=== PATIENT | female | born 1970 | race Caucasian/White ===

== ENCOUNTER 2019-06-05 14:46 | Outpatient (CLI) | payer OTHER, SELFPAY ==
--- NOTE | 2019-06-05 14:58 | CT_ITS ---
WS: [id number] CT PELVIS AND RIGHT HIP. HISTORY: SACROILIAC PAIN Technique: All CT scans at [facility] use at least one of these dose optimization techniq ues: automated exposure control; mA and/or kV adjustment per patient size (includes targeted exams wh ere dose is matched to clinical indication); or iterative reconstruction. DLP: 929.65 mGy-cm. COMPARISON: None available. Very mild sclerosis without significant narrowing of the SI joints. No erosions are identified. No br idging osteophytes or asymmetry. No pelvic fracture. Very mild narrowing of the RIGHT hip joint with no loose body or fracture. No dislocation. No signifi cant muscle atrophy. CT/CT hip RT wo con* [id number] IMPRESSION: 1. No significant RIGHT SI joint abnormality. 2. Mild RIGHT hip arthritis.
--- NOTE | 2019-06-05 14:58 | CT_ITS ---
WS: [id number] CT LEFT HIP, NONCONTRAST HISTORY: SACROILIAC PAIN Technique: All CT scans at [facility] use at least one of these dose optimization techniq ues: automated exposure control; mA and/or kV adjustment per patient size (includes targeted exams wh ere dose is matched to clinical indication); or iterative reconstruction. DLP: 929.65 mGy-cm. COMPARISON: None available. No fractures or dislocation. Mild narrowing of the hip joint. No osteoblastic or osteolytic bone dise ase. SI joint is normal. No erosions or fusion. Soft tissues surrounding the LEFT hip are normal. CT/CT hip LT wo con* [id number] IMPRESSION: 1. Minimal osteoarthritis LEFT hip. 2. Normal SI joint.
== END 2019-06-05 14:47 | disposition home or self-care (01) ==
LOC: RADWPI 14:51
PROVIDERS: Family Provider Nurse Practitioner; PCP Nurse Practitioner; Visit Provider Nurse Practitioner
DX: M53.3 Sacrococcygeal disorders, not elsewhere classified (principal); M16.0 Bilateral primary osteoarthritis of hip
CPT/HCPCS: 73700

== ENCOUNTER → 2019-08-12 09:35 | Outpatient (BNVA) | payer OTHER, SELFPAY | PROVIDERS: Family Provider Nurse Practitioner; PCP Nurse Practitioner; Referring Provider Nurse Practitioner; Visit Provider Anesthesiology Pain Medicine | DX: M54.16 Radiculopathy, lumbar region (principal); M47.816 Spondylosis without myelopathy or radiculopathy, lumbar region; M54.9 Dorsalgia, unspecified; F17.210 Nicotine dependence, cigarettes, uncomplicated; Z79.891 Long term (current) use of opiate analgesic | CPT/HCPCS: 99203; 99204 ==

== ENCOUNTER 2019-08-27 13:04 | Outpatient (CLI) | payer OTHER, SELFPAY ==
--- NOTE | 2019-08-27 | MR_ITS ---
WS: [id number] MRI LUMBAR SPINE NONCONTRAST TECHNIQUE: Sagittal T1, T2 and STIR imaging. Axial T1 and T2 imaging. CLINICAL INFORMATION: RADICULOPATHY LUMBAR SPINE COMPARISON: None. FINDINGS: Mild lumbar curve. No acute compression. No high-grade central canal stenosis. Prior postoperative ch anges anterior cervical fusion C6-7. L1-L2: Normal. L2-L3: Tiny left foraminal protrusion. Mild left and no significant right foraminal narrowing. Mild f acet arthropathy. L3-L4: Prominent left foraminal protrusion slightly impinges the exiting left L3 nerve root with mode rate left foraminal narrowing. Correlation for left L3 nerve root symptoms. Right Foramen is patent. Moderate facet arthropathy. L4-L5: Mild disc bulging eccentric to the right with contact of the exiting right L4 nerve root. Mild right and no significant left foraminal narrowing. Mild to moderate facet arthropathy. Spinal canal is patent. L5-S1: No significant disc bulging. Mild to moderate facet arthropathy. Spinal canal and foramen are patent. Visualized pelvic bony structures: Normal. Paravertebral soft tissues: Normal. MR/MR lumbar spine wo con* [id number] IMPRESSION: 1. Mild lumbar curve. No acute compression. No high-grade central canal stenos is. 2. Small left foraminal protrusion L3-4 impinges the exiting left L3 nerve abdulaziz t with moderate left foraminal narrowing. Correlation for left L3 nerve root sy mptoms. 3. Mild right L4-5 foraminal narrowing with slight encroachment on the exiting right L4 nerve root. 4. Moderate facet arthropathy L3-L5.
--- NOTE | 2019-08-27 13:08 | XR_ITS ---
WS: [id number] LUMBAR SPINE FLEXION AND EXTENSION TECHNIQUE: 3 views of the lumbar spine: Lateral neutral, flexion, and extension views. CLINICAL INFORMATION: pain in lower back COMPARISON: None. FINDINGS: Normal lumbar alignment on the neutral view. No instability on the flexion and extension views. Mild disc space narrowing L3-L4 and L4-L5. XR/XR lumbar spine f/e only [id number] IMPRESSION: No instability on flexion-extension.
== END 2019-08-27 13:05 | disposition home or self-care (01) ==
LOC: RADWPI 13:07
PROVIDERS: Family Provider Nurse Practitioner; PCP Nurse Practitioner; Visit Provider Anesthesiology Pain Medicine
DX: M54.16 Radiculopathy, lumbar region (principal); M51.26 Other intervertebral disc displacement, lumbar region; M48.061 Spinal stenosis, lumbar region without neurogenic claudication; M47.816 Spondylosis without myelopathy or radiculopathy, lumbar region
CPT/HCPCS: 72120; 72148

== ENCOUNTER → 2019-09-09 09:23 | Outpatient (BNVA) | payer OTHER, SELFPAY | PROVIDERS: Family Provider Nurse Practitioner; PCP Nurse Practitioner; Visit Provider Anesthesiology Pain Medicine | DX: M54.16 Radiculopathy, lumbar region (principal); M54.9 Dorsalgia, unspecified; F17.210 Nicotine dependence, cigarettes, uncomplicated | CPT/HCPCS: 64483; 64484; J1040; J2001; J3490 ==

== ENCOUNTER → 2019-09-23 10:26 | Outpatient (BNVA) | payer OTHER, SELFPAY | PROVIDERS: Family Provider Nurse Practitioner; PCP Nurse Practitioner; Visit Provider Anesthesiology Pain Medicine | DX: M47.816 Spondylosis without myelopathy or radiculopathy, lumbar region (principal); M54.16 Radiculopathy, lumbar region; M54.9 Dorsalgia, unspecified; F17.210 Nicotine dependence, cigarettes, uncomplicated | CPT/HCPCS: 99212; 99213 ==

== ENCOUNTER 2019-11-12 08:09 | Outpatient (CLI) | payer OTHER, SELFPAY ==
--- NOTE | 2019-11-12 08:16 | MR_ITS ---
WS: [id number] MRI LEFT KNEE NONCONTRAST TECHNIQUE: Axial PD, coronal PD fat sat, coronal PD, sagittal PD, and sagittal PD fat-sat images obta ined. CLINICAL INFORMATION: LEFT KNEE INJURY COMPARISON: None. FINDINGS: Normal ACL. Normal PCL. Distal quadriceps and patella tendons are intact. Slightly hypertrophic jaimes la. Tibial plateau osteochondral fracture with diffuse edema involving the lateral tibial plateau. Os teochondral fracture measures 1.5 x 2.0 cm AP by transverse. Mild depression of the tibial plateau me asuring 2 to 3 mm. Mild chronic thinning of the medial and lateral meniscus with a small amount of in trasubstance signal abnormality. Medial and lateral collateral ligaments are intact. Mild chondromalacia patella. No subchondral edema . Medial and lateral patellar retinacula appear intact. Normal popliteal fossa. MR/MR knee LT wo con* [id number] IMPRESSION: 1. Osteochondral fracture involving the lateral tibial plateau measuring 1.5 x 2.0 cm AP by transverse. Mild depression of the lateral tibial plateau measuri ng 2 to 3 mm. Moderate diffuse edema in the lateral tibial plateau extending in to the tibial metaphysis and diaphysis. 2. Mild chronic thinning of the medial and lateral meniscus. No acute appearin g meniscal tears. 3. Slightly hypertrophic patella. Mild chondromalacia patella. 4. Medial and lateral collateral ligaments appear intact. 5. ACL and PCL appear intact.
== END 2019-11-12 08:10 | disposition home or self-care (01) ==
LOC: RADSHAW 08:11
PROVIDERS: Family Provider Nurse Practitioner; PCP Nurse Practitioner; Visit Provider Nurse Practitioner
DX: S89.92XA Unspecified injury of left lower leg, initial encounter (principal); S82.142A Displaced bicondylar fracture of left tibia, initial encounter for closed fracture; X58.XXXA Exposure to other specified factors, initial encounter; R60.0 Localized edema; M22.42 Chondromalacia patellae, left knee
CPT/HCPCS: 73721

== ENCOUNTER → 2019-12-01 12:29 | Outpatient (BNVA) | payer OTHER, SELFPAY | PROVIDERS: Family Provider Nurse Practitioner; PCP Nurse Practitioner; Visit Provider Anesthesiology Pain Medicine | DX: M54.16 Radiculopathy, lumbar region (principal); M54.9 Dorsalgia, unspecified; F17.210 Nicotine dependence, cigarettes, uncomplicated | CPT/HCPCS: 64483; 64484; J1040; J3490 ==

== ENCOUNTER → 2019-12-16 09:20 | Outpatient (BNVA) | payer OTHER, SELFPAY | PROVIDERS: Family Provider Nurse Practitioner; PCP Nurse Practitioner; Referring Provider Nurse Practitioner; Visit Provider Orthopaedic Surgery | DX: S82.122A Displaced fracture of lateral condyle of left tibia, initial encounter for closed fracture (principal); X50.1XXA Overexertion from prolonged static or awkward postures, initial encounter | CPT/HCPCS: 73560; 73565 ==

== ENCOUNTER → 2019-12-18 09:19 | Outpatient (BNVA) | payer OTHER, SELFPAY | PROVIDERS: Family Provider Nurse Practitioner; PCP Nurse Practitioner; Visit Provider Anesthesiology Pain Medicine | DX: M47.816 Spondylosis without myelopathy or radiculopathy, lumbar region (principal); M54.16 Radiculopathy, lumbar region; M54.9 Dorsalgia, unspecified; M25.551 Pain in right hip; F17.210 Nicotine dependence, cigarettes, uncomplicated | CPT/HCPCS: 99213; 99214 ==

== ENCOUNTER → 2020-05-13 09:14 | Outpatient (BNVA) | payer OTHER, SELFPAY | PROVIDERS: Family Provider Nurse Practitioner; PCP Nurse Practitioner; Visit Provider Anesthesiology Pain Medicine | DX: M47.816 Spondylosis without myelopathy or radiculopathy, lumbar region (principal); M54.16 Radiculopathy, lumbar region; M54.9 Dorsalgia, unspecified; M25.552 Pain in left hip; F17.210 Nicotine dependence, cigarettes, uncomplicated | CPT/HCPCS: 99214 ==

== ENCOUNTER 2020-05-21 07:52 | Outpatient (CLI) | payer OTHER, SELFPAY ==
--- NOTE | 2020-05-21 08:04 | MM_ITS ---
WS: [id number] BILATERAL DIGITAL SCREENING MAMMOGRAPHY WITH CAD CLINICAL INFORMATION: SCREENING HISTORY: Screening mammogram. No current complaints. COMPARISON: TECHNIQUE: Bilateral CC and MLO views. FINDINGS: The breasts are composed of heterogeneous fibroglandular density tissue, which can limit the detectio n of small underlying mass lesions. No suspicious mass, asymmetry, calcifications, or architectural d istortion. No evidence of malignancy. MM/[place] [id number] IMPRESSION: BI-RADS: 1-Negative FOLLOW UP: 1 Year Follow-up Recommend return to annual screening mammography.
== END 2020-05-21 07:53 | disposition home or self-care (01) ==
LOC: RADSHAW 07:54
PROVIDERS: PCP Nurse Practitioner; Visit Provider Nurse Practitioner
DX: Z12.31 Encounter for screening mammogram for malignant neoplasm of breast (principal)
CPT/HCPCS: 77067

== ENCOUNTER → 2020-05-25 12:35 | Outpatient (BNVA) | payer OTHER, SELFPAY | PROVIDERS: PCP Nurse Practitioner; Visit Provider Anesthesiology Pain Medicine | DX: M47.816 Spondylosis without myelopathy or radiculopathy, lumbar region (principal); M54.9 Dorsalgia, unspecified; F17.210 Nicotine dependence, cigarettes, uncomplicated | CPT/HCPCS: 64493; 64494; 64495; J1040; J3490 ==

== ENCOUNTER 2020-11-23 08:28 | Outpatient (CLI) | payer OTHER, SELFPAY ==
--- NOTE | 2020-11-23 08:34 | CT_ITS ---
WS: [id number] CT CHEST WITH INTRAVENOUS CONTRAST HISTORY: ILL-DEFINED DENSITY RIGHT LUNG BASE TECHNIQUE: Contiguous 5 mm axial imaging performed on the thorax. Coronal and sagittal reformats are submitted. All CT scans at [facility] use at least one of these dose optimization techniq ues: automated exposure control; mA and/or kV adjustment per patient size (includes targeted exams wh ere dose is matched to clinical indication); or iterative reconstruction. CONTRAST: Omnipaque 300; 95 mL IV. DLP: 947.53 mGy-cm. COMPARISON: None available. Lungs and central airway: Mild pulmonary hyperinflation. Subsolid mass with irregular borders at the RIGHT lung base anteriorly at. Mass abuts the diaphragm. Mass extends over a length of 2.6 cm x 3.4 x 3.2 cm. Margins are irregular and slightly lobulated. There may be a few adjacent small satellite no dules with this may be contiguous in of the tumor. No additional masses. Pleura: Normal. No pleural effusion. Heart and pericardium: Normal size heart with no pericardial effusion. Mediastinum and sofia: No mediastinum or hilar adenopathy. Vessels: Normal size aortic and pulmonary artery. No coronary artery calcifications. Chest wall and lower neck: No soft tissue masses. Upper abdomen: Hepatic enlargement with steatosis. No adrenal mass. Osseous structures: Sclerotic focus of the inferior endplate of T11 is indeterminate. CT/CT chest w con* [id number] IMPRESSION: 1. Subsolid mass at the RIGHT lung base abuts the RIGHT hemidiaphragm measurin g 2.6 x 3.4 x 3.2 cm. Highly suspicious for pulmonary neoplasm until proven oth erwise. Recommend follow-up PET/CT imaging. 2. No adenopathy. 3. Mild emphysema. 4. No adrenal mass.
[2020-11-23] MEDS: iohexol 300 mg/mL 100 mL Btl IV (08:56)
== END 2020-11-23 08:29 | disposition home or self-care (01) ==
PROVIDERS: PCP Nurse Practitioner; Visit Provider Nurse Practitioner
DX: R91.1 Solitary pulmonary nodule (principal); J43.9 Emphysema, unspecified
CPT/HCPCS: 71260; Q9967

== ENCOUNTER → 2021-05-05 15:23 | Outpatient (BNVA) | payer OTHER, SELFPAY | PROVIDERS: PCP Nurse Practitioner; Visit Provider Thoracic Surgery (Cardiothoracic Vascular Surgery) | DX: Z20.822 Contact with and (suspected) exposure to COVID-19 (principal); Z01.812 Encounter for preprocedural laboratory examination | CPT/HCPCS: 87635 ==

== ENCOUNTER 2021-05-12 09:23 | Outpatient (CLI) | payer OTHER, SELFPAY ==
--- NOTE | 2021-05-12 10:32 | PFTS_ITS ---
Date of Study:05/12/21 Date of Dictation: 05/17/2021 MECHANICS: Prebronchodilator forced vital capacity (FVC) is normal. Prebronchodilator forced expiratory volume in one second (FEV1) is normal. FEV1/FVC is normal. There is no postbronchodilator study FLOW VOLUME LOOP: Normal . LUNG VOLUMES: Total lung capacity (TLC) is normal. Residual volume (RV) is normal. DIFFUSING CAPACITY FOR CARBON MONOXIDE: Normal . INTERPRETATION: The pulmonary function tests are normal MTDD
--- NOTE | 2021-05-12 10:32 | PFTS_ITS ---
Date of Study:05/12/21 Date of Dictation: 05/17/2021 MECHANICS: Prebronchodilator forced vital capacity (FVC) is . Prebronchodilator forced expiratory volume in one second (FEV1) is . FEV1/FVC is normal. There is no postbronchodilator study FLOW VOLUME LOOP: Normal . LUNG VOLUMES: Total lung capacity (TLC) is normal. Residual volume (RV) is normal. DIFFUSING CAPACITY FOR CARBON MONOXIDE: Normal . INTERPRETATION: The pulmonary function tests are normal MTDD
== END 2021-05-12 09:24 | disposition home or self-care (01) ==
LOC: RT 09:27
PROVIDERS: PCP Nurse Practitioner; Visit Provider Internal Medicine Pulmonary Disease
DX: J44.9 Chronic obstructive pulmonary disease, unspecified (principal); F17.200 Nicotine dependence, unspecified, uncomplicated
CPT/HCPCS: 94010; 94726; 94729

== ENCOUNTER → 2021-05-25 09:55 | Outpatient (BNVA) | payer OTHER, SELFPAY | PROVIDERS: PCP Nurse Practitioner | DX: R91.1 Solitary pulmonary nodule (principal); Z20.822 Contact with and (suspected) exposure to COVID-19 | CPT/HCPCS: 87635 ==

== ENCOUNTER 2021-05-31 10:39 | Inpatient (IN) | payer OTHER, SELFPAY ==
[2021-05-25 10:59] VITALS: BMI 30.7
[2021-05-25 11:55] LABS: Add Urine Microscopic? NO; Charge for UA Resulting for Rev
[2021-05-25 12:11] LABS: Basophils # 0.1 10^3/uL (0.0-0.1); Basophils % 1.1 %; Eosinophils # 0.1 10^3/uL (0.0-0.8); Eosinophils % 2.1 %; Hemoglobin 14.3 g/dL (11.5-15.3); Lymphocytes # 2.5 10^3/uL (0.8-4.8); Lymphocytes % 40.4 %; Mean Corpuscular HGB Conc 32.5 g/dL (30.0-36.0); Mean Corpuscular Hemoglobin 30.5 pg (28.0-34.0); Mean Corpuscular Volume 93.8 fl (81-99); Mean Platelet Volume 10.4 fL (7.4-10.4); Monocytes # 0.4 10^3/uL (0.2-0.9); Monocytes % 6.1 %; Neutrophils # 3.15 10^3/uL (1.8-7.7); Neutrophils % 50.1 %; Nucleated Red Blood Cells % 0 %; Platelet Count 363 10^3/cmm (130-400); Red Blood Count 4.69 10^6/uL (4.1-5.3); Red Cell Distribution Width 13.1 % (12.1-15.1); White Blood Count 6.3 10^3/uL (4.0-10.0)
[2021-05-25 12:23] LABS: Bilirubin Urine Neg (Negative); Blood Urine Neg (Negative); Glucose Urine UA Norm (Normal); Ketones Urine Negative (Negative); Leukocyte Esterase Urine Negative (Negative); Nitrate Urine Negative (Negative); Protein Urine Neg (Negative); Specific Gravity, Urine 1.005 (1.005-1.030); Urine Appearance Clear (CLEAR); Urine Color Yellow (Yellow); Urobilinogen Urine Neg (Negative); pH Urine 5 (5-7)
--- NOTE | 2021-05-25 12:23 | P.ANESASSM_ITS ---
Pre-Anesthetic Assessment Height/Weight: Height 1.68 m Weight 86.183 kg Operation Date: 05/31/21 09:35 Proposed Procedures p Lobectomy R91.1(Right) - Eladio García MD Familial anesthetic complications: None Was Beta Abi taken within 24 hours: N/A Was Clonidine taken within 24 hours: N/A Social Tobacco and No alcohol Exam alert, oriented x 3 and regular rate & rhythm Rhonchi Airway Submandibular: within normal limits Cervical ROM: within normal limits Mallampati: Class II Dentition: false Pulmonary Chronic Obstructive Pulmonary Disease Lung mass Metabolic Hyperlipidemia and Thyroid Disease [facility] [place] [place] [facility] Lower Back Pain Neuropsych Anxiety Anesthetic Plan ASA status: 3 Anesthesia: General and Regional (specify below) (Thoracic epidural for postop pain) Other: A.line and transfusion agreed to if necessary Risk of > 500 ml blood loss (7ml/kg in children): Yes, adequate IV access and fluids planned Medications/Allergies Home Medications Medication Instructions Recorded Confirmed Last Taken Type levothyroxine 125 mcg capsule 125 mcg PO DAILY 07/20/19 05/25/21 Unknown History cholecalciferol (vitamin D3) 25 25 mcg PO DAILY 12/01/19 05/25/21 Unknown History mcg (1,000 unit) capsule simvastatin 5 mg tablet 5 mg PO DAILY 12/01/19 05/25/21 Unknown History lidocaine 5 % topical patch 1 patch TOPICAL DAILY PRN 04/27/21 05/25/21 Unknown History tiotropium bromide 2.5 2 puff INHALATION DAILY #4 g 04/27/21 05/25/21 Unknown Rx mcg/actuation mist for inhalation (Spiriva Respimat) Allergies Allergy/AdvReac Type Severity Reaction Status Date / Time No Known Allergies Allergy Verified 05/25/21 10:56 [facility] Anesthesia Family History Other No pertinent family history Social History Alcohol intake: former Lives independently: Yes Household members: significant other Housing: House Marital status: Number of children: 1 Pets and animals: Yes Pets & animals: cat(s) and dog(s) Data Anesthesia : 05/25/21 11:40 05/25/21 11:40 Short CBC 05/25/21 Range/Units 11:40 WBC 6.3 (4.0-10.0) 10^3/uL Hgb 14.3 (11.5-15.3) g/dL Hct 44.0 (37.0-47.0) % MCV 93.8 (81-99) fl Plt Count 363 (130-400) 10^3/cmm Neut % (Auto) 50.1 % Neut # (Auto) 3.15 (1.8-7.7) 10^3/uL Urine 05/25/21 Range/Units 11:00 Urine Color Yellow (Yellow) Urine Appearance Clear (CLEAR) Urine pH 5 (5-7) Ur Specific [place] 1.005 (1.005-1.030) Urine Protein Neg (Negative) Urine Glucose (UA) Norm (Normal) Urine Ketones Negative (Negative) Urine Nitrate Negative (Negative) Urine Bilirubin Neg (Negative) Ur Leukocyte Esterase Negative (Negative) Cardiac Studies: No Data to Display
[2021-05-25 12:24] LABS: INR 0.85 (0.8-1.2)
[2021-05-25 12:31] LABS: Blood Urea Nitrogen 8 mg/dL (6-20); Calcium 9.7 mg/dL (8.5-10.5); Carbon Dioxide 22 mmol/L (22-29); Chloride 101 mmol/L (98-107); Glomerular Filtration Rate 105.4 mL/min (90-130); Glucose 85 mg/dL (65-115); Osmolality Calculated 278 mOsm/kg (285-295); Sodium 135 mmol/L (136-145)
[2021-05-25 12:34] LABS: Anion Gap 16.6 (5-19); Potassium 4.6 mmol/L (3.5-5.1)
[2021-05-31 10:46] VITALS: BP 102/59; PULSE 73; RESP 18; TEMP 36.4; O2SAT 99
[2021-05-31] MEDS: sodium chloride 0.9% 1,000 ML 30 ML IV (11:31)
[2021-05-31] MEDS: midazolam 1 mg/mL INJ 2 mL 2 MG IVP (11:40)
--- NOTE | 2021-05-31 11:42 | P.ANESUD_ITS ---
Pre-Anesthetic Update Pre-Anesthetic Assessment: Date of Surgery/Procedure: 05/31/21 Preop Tana gnosis: Right lower lung mass Proposed Procedure: Operation Date: 05/31/21 11:50 Proposed Procedures p Lobectomy R91.1(Right) - Eladio García MD Any changes to Pre-Anesthetic Assessment?: No Last Intake: Intake Last Liquid Date 05/30/21 Last Liquid Time 23:30 Last Solid Date 05/30/21 Last Solid Time 23:30 Labs Last 48hrs: Blood Bank 05/25/21 11:40 Blood Type O Positive Rho(D) Type Positive Antibody Screen Positive Vitals: Temperature 97.6 F 05/31/21 10:46 Temperature Source Temporal Artery S can 05/31/21 10:46 Pulse Rate 73 05/31/21 10:46 Respiratory Rate 18 05/31/21 10:46 Blood Pressure 102/59 05/31/21 10:46 Blood Pressure Mago n 73 05/31/21 10:46 Pulse Oximetry 99 05/31/21 10:46 Oxygen Delivery Me thod 05/31/21 10:46 Exam: Pre-Anes Outpt Exam: alert, oriented x 3, clear to auscultation bilaterally and regular rate & rhythm Cardiac Studies: No Data to Display
--- NOTE | 2021-05-31 12:53 | W.PM.OPSUD ---
Surgery/Procedure H&P Update DATE OF PROCEDURE: May 31, 2021 DATE H&P PERFORMED: 05/05/21 CHANGES TO PREVIOUS DOCUMENTATION: None PREOP DIAGNOSIS: Right lower lung mass PRIMARY INDICATION FOR PROCEDURE: Enlarging right lower lobe lung mass with increased activity on PET scan. Long history of tobacco use PLANNED PROCEDURE: Operation Date: 05/31/21 11:50 Proposed Procedures p Lobectomy R91.1(Right) - Eladio García MD
[2021-05-31] MEDS: vancomycin 1,000 MG SDV 2000 MG IRRIGATION (14:34)
--- NOTE | 2021-05-31 16:45 | P.OP_ITS ---
Operative Report Date of procedure: May 31, 2021 Pre-op diagnosis: Preop Diagnosis Right lower lung mass Procedure done: Right lower lobectomy Specimens removed/disposition: Right lower lobe Surgeon: Eladio García Anesthesia: General Brief History: Ms. Lopez is a 54-year-old female referred to our service by Dr. Woodruff to consider surgical resection radiographically suspicious right lower lobe lung mass. This lesion has been documented since 2012 but has shown slow growth throughout that. Until now. PET scan of November 2020 revealed a 2.9 x 3.2 cm lesion which was semisolid with SUV of 3. This PET scan was repeated in April 022020 with the SUV had increased to 3.7. She has a very long history of continued tobacco use. After evaluation by Dr. Woodruff, it is felt p rudent to try to remove this mass given also that she has a family history for lung carcinoma in her grandmother. She underwent careful outpatient preop evaluation. Details risk the procedure were carefully and frankly discussed. Proper consents were reviewed and signed. Procedure: Thoracic epidural catheter was placed after entering the surgical suite. She underwent general endotracheal anesthesia with double-lumen endotracheal tube placed. Appropriate invasive lines were placed. She was placed in the left lateral decubitus position over axillary roll and protective padding. Her entire right chest was sterilely prepped and draped. A muscle-sparing limited right thoracotomy incision was made with cautery used to control bleeding. La tissimus muscle was divided. The anterior serratus muscle was retracted but not divided. The fifth intercostal space was entered. Moist laparotomy pads and the Finochietto retractor were placed. The chest was carefully opened. Right lower lobe mass could be easily palpated. The pleura was opened the inferior circumferentially around the hilum. Inferior pulmonary ligament was taken down. Hilar dissection was initiated anteriorly and superiorly. The anterior pulmonary vein was controlled and stapled after taking down the inferior pulmonary ligament It was then divided. Dissection was then continued cranially isolating branches of the pulmonary artery to the right lower lobe. These were also taken down ligated and divided. Posteriorly, the bronchus to the right lower lobe was dissected free. Fissure between the middle lobe and lower lobe was completed with cautery dissection. Next, right lower lobe bronchus was stapled and sharply divided with scalpel. Right lower lobe speci men was removed. Bronchus to the right lower lobe was then oversewn with 4-0 Prolene suture in 2 layers. The entire chest was irrigated with large amounts of antibiotic solution. Right upper and middle lobe were reinflated. No substantial air leaks were identified. 28 Mongolian drain x2 was placed over the diaphragm and out to the apex. These were connected to Pleur-evac suction. Retractor and sponges were removed. Sponge and needle count was correct. Chest wall was reapproximated with interrupted #1 Vicryl suture. The fascia was closed with running 0 Vicryl suture. The subcutaneous layer was closed with 2-0 Vicryl suture. Skin was reapproximated in a subcuticular manner with 3-0 Monocryl suture. Sterile dressing was applied. Patient was returned to the supine position and awakened from anesthesia. She was extubated. Ms. Lopze was then transferred to the ICU. Family was counseled.
--- NOTE | 2021-05-31 17:09 | ANES.PROC ---
Anesthesia Procedures Procedure/Date: 05/31/21 Epidural: Time Out Performed: Yes Consents Signed: Procedure Consent Consent: requested by attending/covering physician, from patient and risks and benefits reviewed Thoracic Level: T9-T10 Epidural position: sitting Epidural procedure: sterile prep of area, 1% lidocaine to numb the area, 18 g needle, neg for paresthesia, test dose given, 1.5% xylocaine 1:200k epi, placed PCEA, no systemic response and sterile dressing applied Additional Comments: EVER at 5cm, cath at 10cm
--- NOTE | 2021-05-31 17:21 | XR_ITS ---
WS: [id number] PORTABLE CHEST HISTORY: s/p Right lower lobectomy COMPARISON: PET CT 04/02/2021 Patient is status post RIGHT lower lobectomy as per history. Linear atelectasis in the central LEFT lung. Slight volume loss in the RIGHT lung. There are 2 right- sided chest tubes directed superiorly. No pneumothorax or pleural effusion is identified. Cardiac size: Normal. Mediastinum/Aorta: Mild atherosclerosis aorta. No osseous abnormality seen. Mild subcutis emphysema over the RIGHT chest. XR/XR chest 1V portable [id number] IMPRESSION: 1. 2 right-sided chest tubes are present with tips directed superiorly. No pne umothorax identified. 2. Small amount of subcutaneous emphysema on the RIGHT. 3. Linear atelectasis in the central LEFT lung.
[2021-05-31 17:22] VITALS: BMI 30.7
--- NOTE | 2021-05-31 17:40 | ANE.PACU2 ---
Inpatient post-anesthesia follow up: Airway intact: Yes Vital signs: Temperature 97.6 F Pulse Rate 73 Respiratory Rate 18 Blood Pressure 102/59 Pulse Oximetry 99 Oxygen Delivery Me thod Simple Mask Oxygen Flow Rate Fraction of Inspir ed Oxygen Hydration adequate: Yes Nausea and vomiting: No Pain level: 2 Mental status: Baseline
--- NOTE | 2021-05-31 17:46 | PC.NURSE ---
1700 pt arrived from surgery with staff at bedside. Ropivicaine infusing per orders. R radial art line in place, leveled and zeroed. PIV's to L hand. Mosquera cath in place draining freely. CT to R side in place to LWS, constant bubbling noted to wet seal chamber. Pt c/o pain to neck and R side. SUPERINTENDENT [employer]ITATION explained to pt and button given to pt. Assessment completed. CL given to pt. HOB elevated. VSS. Will monitor. [employer] called to fix monitor d/t not sending info to main computer. 1744 TSO3 attempting to fix monitor.
[2021-05-31 17:47] VITALS: PULSE 89; RESP 16; O2SAT 95
[2021-05-31 17:49] VITALS: PULSE 88
[2021-05-31] MEDS: lactated ringers 1,000 ML 100 ML IV (21:38)
[2021-05-31] MEDS: ketorolac 30 mg/mL INJ IVP (21:38)
[2021-05-31] MEDS: ceFAZolin 1,000 MG in sodium chloride 0.9% (plus) 50 ML 100 MG IV (21:41)
[2021-05-31 22:00] VITALS: PULSE 66
[2021-06-01] VITALS (35 sets, daily range): BP systolic 71–123; BP diastolic 46–77; PULSE 52–87; RESP 13–27; TEMP 36.6–37.6; O2SAT 91–99
[2021-06-01] MEDS: oxyCODONE-APAP 5-325 mg Tablet 1 TAB PO ×3 (00:45→18:23)
[2021-06-01] MEDS: ALPRAZolam 0.5 mg Tablet PO ×3 (02:00→18:23)
[2021-06-01] MEDS: ketorolac 30 mg/mL INJ IVP ×3 (03:48→21:31)
[2021-06-01 04:25] LABS: Basophils % 0.2 %; Hematocrit 36.8 % (37.0-47.0); Hemoglobin 11.7 g/dL (11.5-15.3); Lymphocytes # 1.1 10^3/uL (0.8-4.8); Mean Corpuscular HGB Conc 31.8 g/dL (30.0-36.0); Mean Corpuscular Hemoglobin 30.2 pg (28.0-34.0); Mean Corpuscular Volume 95.1 fl (81-99); Mean Platelet Volume 10.7 fL (7.4-10.4); Monocytes # 0.6 10^3/uL (0.2-0.9); Monocytes % 4.8 %; Neutrophils # 10.12 10^3/uL (1.8-7.7); Neutrophils % 85.6 %; Nucleated Red Blood Cells % 0 %; Platelet Count 270 10^3/cmm (130-400); Red Blood Count 3.87 10^6/uL (4.1-5.3); Red Cell Distribution Width 13.2 % (12.1-15.1); White Blood Count 11.8 10^3/uL (4.0-10.0)
[2021-06-01 04:42] LABS: Anion Gap 13.7 (5-19); Blood Urea Nitrogen 10 mg/dL (6-20); Calcium 7.5 mg/dL (8.5-10.5); Carbon Dioxide 23 mmol/L (22-29); Chloride 108 mmol/L (98-107); Glomerular Filtration Rate 105.4 mL/min (90-130); Glucose 148 mg/dL (65-115); Osmolality Calculated 292 mOsm/kg (285-295); Potassium 4.7 mmol/L (3.5-5.1); Sodium 140 mmol/L (136-145)
--- NOTE | 2021-06-01 04:50 | PC.NURSE ---
Shift Note Frequent safety and comfort rounds continue. Orders and/or nursing care completed as indicated. Patient monitored for response to intervention and treatment(s). Education provided includes arterial line and chest tube management. Patient verbalizes understanding of teaching. Patient had an uneventful shift, she remains on 3L oxygen via nasal cannula and frequently reports pain in the neck and back. PRN pain medications were administered throughout the shift. Mosquera catheter drained 250 mls of urine overnight. Right lateral chest tube had combined 190 mls out overnight-sanguineous drainage. No wounds/skin issues noted other than surgical incision to right lateral chest. Will continue to monitor.
[2021-06-01] MEDS: ceFAZolin 1,000 MG in sodium chloride 0.9% (plus) 50 ML 100 MG IV ×2 (05:48→13:13)
--- NOTE | 2021-06-01 05:52 | P.PN_ITS ---
Subjective Subjective: Postop day #1 status post right lower lobectomy. Uneventful night. Other than some thoracotomy discomfort, nurses report she is doing well. She was sleeping on rounds this morning. Chest tube to suction. No air leak noted. Chest tube output since surgery 278 cc. Chest x-ray this morning reveals clear right lung field with some increased vascular markings on the left. Intake and output is +850 cc. Vitals/I&O/Wt Last Vital Signs Temp 97.6 F 05/31/21 10:46 Pulse 66 05/31/21 22:00 Resp 20 H 06/01/21 00:45 BP 102/59 05/31/21 10:46 Pulse Ox 95 05/31/21 17:47 05/31/21 05/31/21 06/01/21 14:59 22:59 06:59 Intake Total 1230 / 1230 240 / 1470 Output Total 213 / 213 440 / 653 Balance 1017 / 1017 -200 / 817 Weight last 48 hrs Weight 190 lb Physical Exam Chest: COMMONS NORMALS: normal inspection of the chest and normal palpation of entire chest wall OTHER: Regular dressings in place, clean and dry. Resp: COMMON NORMALS: normal respiratory effort, No use of accessory muscles and clear to auscultation bilaterally AUSCULTATION: clear to auscultation bilaterally Cardio: COMMON NORMALS: regular rate, regular rhythm, S1 normal heart sound present and No murmurs present (Cardio) RATE: regular rate RHYTHM: regular rhythm HEART SOUNDS: S1 normal heart sound present Extremity: OTHER: Trace of peripheral edema Urinary Catheter Management: Mosquera: Cath Placed During This Visit: yes Reason for Continuing Indwelling Catheter: Accurate Measurement of Urinary Output in Critically Ill Patients Urinary Catheter Date of Insertion: 05/31/21 Urinary Catheter Time of Insertion: 14:15 Data : 06/01/21 03:35 06/01/21 03:35 A&P Assessment and plan (1) Status post lobectomy of lung: Postop day #1 status post right lower lobectomy Plan: We will transfer to [facility]. I will place chest tubes to waterseal later today. Out of bed in chair. Encourage pulmonary toilet. CBC, BMP, chest x-ray in a.m. Status: Acute Attestations Medical Necessity Statement*: Postop day #1 status post right lower lobectomy for lung mass. Pathology pending. Coding Level of Care Code Acute Superintendent Terminal for Chg Fwd Diagnoses Status post lobectomy of lung Z90.2
--- NOTE | 2021-06-01 06:00 | XR_ITS ---
WS: [id number] PORTABLE CHEST HISTORY: pod #1 s/p Right lower lobectomy COMPARISON: 05/31/2021 There are 2 right-sided chest tubes entering the inferior RIGHT lateral chest. The tips are directed superiorly. Very tiny lucency at the apex is probably a very small amount of pleural air. Additional lucency at t he RIGHT costophrenic angle. Mild hazy opacification over the LEFT lung. Cardiac size: Normal. Mediastinum/Aorta: Mild atherosclerosis aorta. Mild widening of the mediastinum is probably due to se miupright position. No osseous abnormality seen. Small amount of subcutaneous emphysema over the RIGHT lateral upper abdomen and thorax. XR/XR chest 1V portable [id number] IMPRESSION: 1. Patient is status post RIGHT lower lobectomy. 2. There are 2 right-sided chest tubes directed superiorly. 3. Very tiny pneumothorax is suspected at the costophrenic angle and at the RI GHT apex. 4. Mild opacification throughout the LEFT lung may be due to poor inspiration or pneumonitis.
[2021-06-01] MEDS: lactated ringers 1,000 ML 100 ML IV (07:30)
[2021-06-01] MEDS: pantoprazole DR 40 mg Tablet PO (08:20)
--- NOTE | 2021-06-01 12:03 | ANE.PACU2 ---
Inpatient post-anesthesia follow up: Airway intact: Yes Vital signs: Temperature 98.0 F Pulse Rate 60 Respiratory Rate 20 Blood Pressure 89/60 Pulse Oximetry 97 Oxygen Delivery Me thod Nasal Cannula Oxygen Flow Rate 3 Fraction of Inspir ed Oxygen Hydration adequate: No (Mildly dehydrated) Nausea and vomiting: No Pain level: 3 Mental status: Baseline Additional Comments: Patient c/o mostly neck pain likely due to positioning during surgery. She deep breaths and coughs easily. Epidural might be unmasking slight dehydration.
--- NOTE | 2021-06-01 16:39 | PM.MISC ---
Miscellaneous Note Purpose of Documentation: Uneventful day. Up in chair this morning. Moderate use of incentive spirometer. Good effective cough. No airleak noted. Biggest complaint is of posterior neck pain related to prior neck surgery. Plan: I will place chest tube to waterseal. CBC, BMP, chest x-ray in a.m. Lidocaine patch 5% posterior neck Saline lock IV fluids. Still awaiting bed availability for transfer to medical/surgical [facility].
--- NOTE | 2021-06-01 17:40 | PC.NURSE ---
Shift Note Frequent safety and comfort rounds continue. Orders and/or nursing care completed as indicated. Patient monitored for response to intervention and treatment(s). Education provided includes treatment plan, medications, pain management and ambulation goals. Pt verbalizes understanding. MD placed CT to waterseal only. IV saline locked. VSS. BP remains low at times but does not require pressor support. PT educated on effects of pain meds on already low BP. Awaiting med surg bed. Will continue to monitor.
[2021-06-01] MEDS: lidocaine 5% Patch 1 PATCH TOPICAL (21:20)
[2021-06-02] VITALS (28 sets, daily range): BP systolic 90–145; BP diastolic 57–91; PULSE 65–89; RESP 14–29; TEMP 36.8–37.1; O2SAT 90–97
[2021-06-02] MEDS: ALPRAZolam 0.5 mg Tablet PO ×4 (00:26→16:13)
[2021-06-02] MEDS: oxyCODONE-APAP 5-325 mg Tablet 1 TAB PO ×5 (02:30→23:18)
[2021-06-02] MEDS: ketorolac 30 mg/mL INJ IVP (02:47)
[2021-06-02] MEDS: guaiFENesin 100 mg/5 mL UDC 10 mL 200 MG PO ×3 (02:56→18:17)
[2021-06-02 04:21] LABS: Basophils % 0.3 %; Eosinophils # 0.1 10^3/uL (0.0-0.8); Eosinophils % 0.5 %; Hematocrit 34.8 % (37.0-47.0); Hemoglobin 10.7 g/dL (11.5-15.3); Lymphocytes # 2.3 10^3/uL (0.8-4.8); Lymphocytes % 24.3 %; Mean Corpuscular HGB Conc 30.7 g/dL (30.0-36.0); Mean Corpuscular Hemoglobin 30.2 pg (28.0-34.0); Mean Corpuscular Volume 98.3 fl (81-99); Mean Platelet Volume 10.3 fL (7.4-10.4); Monocytes # 0.7 10^3/uL (0.2-0.9); Neutrophils # 6.35 10^3/uL (1.8-7.7); Neutrophils % 67.6 %; Nucleated Red Blood Cells % 0 %; Platelet Count 229 10^3/cmm (130-400); Red Blood Count 3.54 10^6/uL (4.1-5.3); Red Cell Distribution Width 13.3 % (12.1-15.1); White Blood Count 9.4 10^3/uL (4.0-10.0)
[2021-06-02 05:03] LABS: Blood Urea Nitrogen 13 mg/dL (6-20); Calcium 8.1 mg/dL (8.5-10.5); Carbon Dioxide 23 mmol/L (22-29); Chloride 110 mmol/L (98-107); Glomerular Filtration Rate 105.4 mL/min (90-130); Glucose 106 mg/dL (65-115); Osmolality Calculated 289 mOsm/kg (285-295); Sodium 139 mmol/L (136-145)
--- NOTE | 2021-06-02 06:00 | XR_ITS ---
WS: [id number] Portable AP upright chest, 06/02/2021 Clinical Data: POD#2 s/p Right lower lobectomy (chest tube to water seal) Comparison: Portable chest, 06/01/2021 Findings: The 2 medial right chest tubes ending near the right lung apex remain the same. There may b e a small right apical pneumothorax. There is elevation of the right diaphragm. The left lung is nikki r. Monitor leads are on the chest wall. The patient has had an anterior cervical disc fusion. XR/XR chest 1V portable [id number] Impression: 1. Possible small right apical pneumothorax. 2. No change in 2 medial right chest tubes.
--- NOTE | 2021-06-02 07:29 | P.PN_ITS ---
Subjective Subjective: Postop day #2 status post right lower lobectomy. Pathology is pending. Biggest complaint is of neck discomfort. She also states there is discomfort when IV Toradol is administered. No air leak noted on Pleur-evac. Chest tube output 185 cc past 24 hours. Drainage is now serous. I do note a s mall apical pneumothorax. With chest tube hooked to suction there was a small recovery of pleural air. Effective cough with a bit of rattling. Chest x-ray is improved with less pulmonary vascular engorgement on the left. No effusions or infiltrates are noted. Mediastinum is stable. Right pleural tubes are in good position. She is scheduled to be transferred to room 267 on the medical/surgical riggins within the next 1 to 2 hours. Pathology is pending. Vitals/I&O/Wt Last Vital Signs Temp 98.7 F 06/02/21 04:00 Pulse 68 06/02/21 06:00 Resp 17 06/02/21 05:00 BP 103/66 06/02/21 05:00 Pulse Ox 91 06/02/21 05:00 06/01/21 06/02/21 06/02/21 22:59 06:59 14:59 Intake Total 1601.667 / 3231.667 250 / 3481.667 Output Total 410 / 410 200 / 610 Balance 1191.667 / 2821.667 50 / 2871.667 Weight last 48 hrs Weight 190 lb Physical Exam Neck/C-Spine: OTHER: Generalized neck tenderness and decreased range of motion, with most tenderness being more to the right side than the left. Chest: OTHER: Surgical dressings in place. Drains are in good position. No subcutaneous emphysema. Resp: OTHER: Basilar crackles. Good effective in clearing cough. Cardio: COMMON NORMALS: regular rate, regular rhythm, S1 normal heart sound present and No murmurs present (Cardio) RATE: regular rate RHYTHM: regular rhythm HEART SOUNDS: S1 normal heart sound present Extremity: COMMON NORMALS: no clubbing, cyanosis or edema Urinary Catheter Management: Mosquera: Cath Placed During This Visit: yes Reason for Continuing Indwelling Catheter: Accurate Measurement of Urinary Output in Critically Ill Patients Urinary Catheter Date of Insertion: 05/31/21 Urinary Catheter Time of Insertion: 14:15 Data : 06/02/21 04:04 02/17/22 04:04 A&P Assessment and plan (1) Status post lobectomy of lung: Postop day #2 status post right lower lobectomy. Pathology pending. Plan: Will transfer to medical/surgical riggins. DC IV Toradol. Will transition to p.o. Toradol. Continue pulmonary toilet. I will assess chest tube output later this evening to determine whether to remove pleural tubes this evening or tomorrow. Out of bed in chair. Status: Acute Attestations Medical Necessity Statement*: Postop day #2 status post right lower lobectomy. Coding Level of Care Code Acute Certified Master Safe Technician for Chg Fwd Diagnoses Status post lobectomy of lung Z90.2
[2021-06-02] MEDS: pantoprazole DR 40 mg Tablet PO (08:29)
[2021-06-02] MEDS: TRAMadol 50 mg Tablet PO ×2 (08:29→14:56)
--- NOTE | 2021-06-02 09:43 | PC.NURSE ---
Patient was taken to [facility] 267 at 0930 via wheelchair. Epidural pump running per orders and chest tubes water sealed. All belongings were taken with patient. No complaints noted.
--- NOTE | 2021-06-02 09:44 | ANE.PACU2 ---
Inpatient post-anesthesia follow up: Airway intact: Yes Vital signs: Temperature 98.5 F Pulse Rate 79 Respiratory Rate 21 Blood Pressure 136/85 Pulse Oximetry 91 Oxygen Delivery Me thod Nasal Cannula Oxygen Flow Rate 3 Fraction of Inspir ed Oxygen Hydration adequate: Yes Nausea and vomiting: No Pain level: 2 Mental status: Baseline Additional Comments: Still c/o of neck discomfort, but overall looks very comfortable. Plan to d/c epidural tomorrow morning.
--- NOTE | 2021-06-02 10:32 | PC.NURSE ---
Received patient from the ICU at this time. Patient is A&Ox3. Respirations even and non-labored on room air. Patient with chest tubesx2 to water seal suction.
[2021-06-02] MEDS: ketorolac 10 mg Tablet PO ×2 (11:36→17:33)
[2021-06-02 17:32] LABS: Add Urine Microscopic? YES; Amorphous Sediment Urine 3+ /hpf; Bacteria Urine TRACE /hpf; Bilirubin Urine Neg (Negative); Blood Urine 3+ (Negative); Glucose Urine UA Norm (Normal); Ketones Urine Negative (Negative); Leukocyte Esterase Urine Negative (Negative); Mucus Urine 3+ /hpf; Nitrate Urine Negative (Negative); Protein Urine Neg (Negative); RBC Urine 15-25 /hpf (0-2); Squamous Epithelial Cell Urine RARE /hpf (0-5); Urine Appearance Clear (CLEAR); Urine Color Yellow (Yellow); Urobilinogen Urine Neg (Negative); pH Urine 5 (5-7)
[2021-06-02 17:33] LABS: Add Urine Culture? No
[2021-06-02] MEDS: docusate sodium 100 mg Capsule PO (17:34)
--- NOTE | 2021-06-02 18:57 | PC.NURSE ---
Report to Kathy RAM at this time.
[2021-06-02] MEDS: ALPRAZolam 0.5 mg Tablet 1 MG PO (21:00)
[2021-06-03] VITALS (28 sets, daily range): BP systolic 99–145; BP diastolic 78–101; PULSE 0–85; RESP 16–30; TEMP 36.4–36.8; O2SAT 86–96
[2021-06-03] MEDS: TRAMadol 50 mg Tablet PO ×2 (00:06→16:25)
[2021-06-03] MEDS: ketorolac 10 mg Tablet PO ×2 (00:06→21:38)
[2021-06-03] MEDS: morphine 4 mg/mL SDV 1 mL 2 MG IVP ×4 (01:02→18:37)
[2021-06-03] MEDS: guaiFENesin 100 mg/5 mL UDC 10 mL 200 MG PO ×2 (01:08→21:40)
[2021-06-03] MEDS: oxyCODONE-APAP 5-325 mg Tablet 1 TAB PO ×3 (06:00→21:39)
[2021-06-03] MEDS: ALPRAZolam 0.5 mg Tablet 1 MG PO ×2 (06:00→21:39)
--- NOTE | 2021-06-03 06:00 | XRR_ITS ---
PROCEDURE INFORMATION: Exam: XR Chest Exam date and time: 06/03/2021 6:00 AM Age: 50 years old Clinical indication: Other: C/O of pain at incision site. ; Prior surgery; Surgery date: 3-7 days post-operative; Patient HX: Patient 3 days post op RT lower lobectomy. Patient C/O pain to incision site. Small RT apical pneumothorax on cxr dated 06/02/2021. Gross change in appearance on today's exam. ; Additional info: Postop day #3 status post right lower lobectomy TECHNIQUE: Imaging protocol: XR of the chest. Views: 1 view. COMPARISON: CR XR chest 1V portable [id number] 06/02/2021 4:32 AM FINDINGS: Tubes, catheters and devices: There is stable placement of right thoracostomy tubes. Lungs: Status post right lower lobectomy. There is further collapse of the right lung compared with yesterday's examination. Pleural spaces: Unremarkable. No pleural effusion. No pneumothorax. Heart/Mediastinum: Unremarkable. No cardiomegaly. Bones/joints: Unremarkable. Soft tissues: There is subcutaneous emphysema seen along the right lateral chest wall. XR/XR chest 1V portable [id number] IMPRESSION: 1. Status post right lower lobectomy. 2. Stable placement of the right thoracostomy tubes. 3. There is further collapse of the right lung compared with yesterday's examination. 4. Subcutaneous emphysema seen in adjacent to the right lateral chest wall.
[2021-06-03] MEDS: lanolin oint 7 gm 1 APPLIC TOPICAL (06:01)
--- NOTE | 2021-06-03 06:30 | XR_ITS ---
WS: [id number] Portable AP upright chest, 06/03/2021, 0628 hours Clinical Data: Changes to prior CXR, Chest tube now to suction Comparison: Portable chest, 06/03/2021, 0439 hours Findings: There are 2 right chest tubes which end near the apex of the lung. There is complete collap se of the right upper lobe and probably right middle lobe causing right thoracic density. There is a small right apical pneumothorax. The heart and mediastinum are shifted left to right. The left lung i s fully expanded. There is subcutaneous emphysema along the right lateral chest wall. Monitor leads a re on the chest wall. XR/XR chest 1V portable [id number] Impression: 1. No change in right chest tubes in probable collapse of the right middle lobe and right upper lobe. 2. Small right apical pneumothorax. 3. No change in right lateral chest wall subcutaneous emphysema.
--- NOTE | 2021-06-03 07:29 | PM.PN ---
Subjective Subjective: Postop day #3 status post right lower lobectomy. Chest x-ray this morning reveals atelectasis of the right upper lobe consistent with most probable mucous plugging. She has had a poor inspiratory effort and cough the past 24 hours, pulling only 500 cc on incentive spirometry. Pathology has returned adenocarcinoma reported to me verbally by Dr. Garrett. Final report is not out as of yet. Chest tube output only 80 cc past 24 hours. Vitals/I&O/Wt Last Vital Signs Temp 97.8 F 06/03/21 04:00 Pulse 68 06/03/21 04:00 Resp 16 06/03/21 06:00 BP 145/83 06/03/21 04:00 Pulse Ox 90 06/03/21 04:00 06/02/21 06/03/21 06/03/21 22:59 06:59 14:59 Intake Total 340 / 680 220 / 900 Output Total 200 / 200 270 / 470 Balance 140 / 480 -50 / 430 Physical Exam Resp: OTHER: Breath sounds throughout the right side consistent with the obvious atelectasis on chest x-ray this morning. This did not improve with placed in a chest tube back to suction. I do not feel she has an air leak as this most probably is mucous plugging. Urinary Catheter Management: Mosquera: Cath Placed During This Visit: yes Reason for Continuing Indwelling Catheter: Acute Urinary Retention or Obstruction Urinary Catheter Date of Insertion: 05/31/21 Urinary Catheter Time of Insertion: 14:15 Data : 06/02/21 04:04 06/02/21 04:04 A&P Assessment and plan (1) Postoperative atelectasis: Postop day #3 status post right lower lobectomy. Has developed substantial postop atelectasis past 24 hours, most consistent with probable mucous plugging. Plan: I will plan for therapeutic bronchoscopy at noon today. Rationale was carefully discussed with her. She is in agreement. Status: Acute Attestations Medical Necessity Statement*: Postop atelectasis status post right lower lobectomy Coding Level of Care Code Acute Regional Planner for Pastora Rosas Diagnoses Postoperative atelectasis J95.89; J98.11
--- NOTE | 2021-06-03 07:34 | ANES.PREANE2 ---
Pre-Anesthetic Assessment Height/Weight: Height 1.68 m Weight 86.183 kg Temp Pulse Resp BP Pulse Ox 97.8 F 68 16 145/83 90 06/03/21 04:00 06/03/21 04:00 06/03/21 06:00 06/03/21 04:00 06/03/21 04:00 Preop Diagnosis: Right lower lung mass Operation Date: 05/31/21 11:50 Proposed Procedures p Lobectomy R91.1(Right) - Eladio García MD Operation Date: 06/03/21 12:10 Proposed Procedures p Bronchoscopy(Not Applicable) - Eladio García MD Last intake: Intake Last Liquid Date 05/30/21 Last Liquid Time 23:30 Last Solid Date 05/30/21 Last Solid Time 23:30 Pulmonary Chronic Obstructive Pulmonary Disease S/P lobectomy now with concern for mucous plug and lung collapse CXR 06/03/21 XR/XR chest 1V portable [id number] IMPRESSION: 1. Status post right lower lobectomy. 2. Stable placement of the right thoracostomy tubes. 3. There is further collapse of the right lung compared with yesterday's examination. 4. Subcutaneous emphysema seen in adjacent to the right lateral chest wall. ? CV/HEM Anemia Metabolic Thyroid Disease Musc/skel Osteoarthritis/DJD Hx of radiculopathy Medications/Allergies Home Medications Medication Instructions Recorded Confirmed Last Taken Type levothyroxine 125 mcg capsule 125 mcg PO DAILY 07/20/19 05/25/21 05/30/21 History cholecalciferol (vitamin D3) 25 25 mcg PO DAILY 12/01/19 05/25/21 Unknown History mcg (1,000 unit) capsule simvastatin 5 mg tablet 5 mg PO DAILY 12/01/19 05/25/21 Unknown History lidocaine 5 % topical patch 1 patch TOPICAL DAILY PRN 04/27/21 05/25/21 Unknown History tiotropium bromide 2.5 2 puff INHALATION DAILY #4 g 04/27/21 05/25/21 05/29/21 Rx mcg/actuation mist for inhalation (Spiriva Respimat) ascorbic acid (vitamin C) 500 mg 500 mg PO DAILY 05/31/21 05/31/21 05/30/21 History tablet (Vitamin C) Allergies Allergy/AdvReac Type Severity Reaction Status Date / Time No Known Allergies Allergy Verified 05/25/21 10:56 Current Medications Generic Name Dose Route Start Last Admin Trade Name Sandeepq PRN Reason Stop Dose Admin Alprazolam 1 mg 06/02/21 15:30 06/03/21 06:00 Alprazolam 0.5 Mg Tablet PO 1 mg TID PRN Administration ANXIETY Docusate Sodium 100 mg 05/31/21 17:21 06/02/21 17:34 Docusate Sodium 100 Mg Capsule PO 100 mg BID PRN Administration Constipation (Use 1st) Guaifenesin 200 mg 05/31/21 17:21 06/03/21 01:08 Guaifenesin 100 Mg/5 Ml Udc 10 Ml PO 200 mg Q4H PRN Administration COUGH Ropivacaine 200 mg in 100 mls @ 6 mls/hr 05/31/21 18:45 06/03/21 06:02 Naropin Premix EPIDURAL 6 mls/hr .[id number] DELVIS Administration Ketorolac Tromethamine 10 mg 06/02/21 07:34 06/03/21 00:06 Ketorolac 10 Mg Tablet PO 10 mg Q6H PRN Administration PAIN Lanolin 1 applic 06/03/21 05:47 06/03/21 06:01 Lanolin Oint 7 Gm TOPICAL 1 applic PRN PRN Administration DRYNESS Lidocaine 1 patch 06/01/21 21:00 06/02/21 21:01 Lidocaine 5% Patch TOPICAL Not Given [id number] DELVIS Morphine Sulfate 2 mg 05/31/21 17:21 06/03/21 02:47 Morphine 4 Mg/Ml Sdv 1 Ml IVP 2 mg Q1H PRN Administration SEVERE PAIN Oxycodone/Acetaminophen 1 tab 05/31/21 17:21 06/03/21 06:00 Oxycodone-Apap 5-325 Mg Tablet PO 1 tab Q4H PRN Administration MODERATE PAIN Pantoprazole Sodium 40 mg 06/01/21 09:00 06/02/21 08:[address] 40 Mg Tablet PO 40 mg DAILY DELVIS Administration Tramadol HCl 50 mg 05/31/21 17:21 06/03/21 00:06 Tramadol 50 Mg Tablet PO 50 mg Q4H PRN Administration MODERATE PAIN PFSH Anesthesia Family History Other No pertinent family history Social History Alcohol intake: former Lives independently: Yes Household members: significant other Housing: House Marital status: Number of children: 1 Pets and animals: Yes Pets & animals: cat(s) and dog(s) Data Anesthesia : 06/02/21 04:04 06/02/21 04:04 Short CBC 06/02/21 Range/Units 04:04 WBC 9.4 (4.0-10.0) 10^3/uL Hgb 10.7 L (11.5-15.3) g/dL Hct 34.8 L (37.0-47.0) % MCV 98.3 (81-99) fl Plt Count 229 (130-400) 10^3/cmm Neut % (Auto) 67.6 % Neut # (Auto) 6.35 (1.8-7.7) 10^3/uL BMP 06/02/21 04:04 Sodium 139 Potassium 4.0 Chloride 110 H Carbon Dioxide 23 BUN 13 Creatinine 0.6 Glucose 106 Calcium 8.1 L Urine 06/02/21 Range/Units 15:38 Urine Color Yellow (Yellow) Urine Appearance Clear (CLEAR) Urine pH 5 (5-7) Ur Specific [place] 1.020 (1.005-1.030) Urine Protein Neg (Negative) Urine Glucose (UA) Norm (Normal) Urine Ketones Negative (Negative) Urine Nitrate Negative (Negative) Urine Bilirubin Neg (Negative) Ur Leukocyte Esterase Negative (Negative) Urine RBC 15-25 H (0-2) /hpf Urine WBC None (0-5) /hpf Cardiac Studies: No Data to Display
[2021-06-03] MEDS: sodium chloride 0.9% 1,000 ML 30 ML IV (11:57)
[2021-06-03] MEDS: cetacaine Spray 5 gm Can 1 SPRAY TOPICAL (12:22)
[2021-06-03] MEDS: sodium bicarbonate 1 mEq/mL SDV 50mL 50 MEQ XX (12:30)
[2021-06-03] MEDS: levofloxacin-dextrose 5 % 500 MG/100 ML PREMIX 100 MG IV (12:39)
--- NOTE | 2021-06-03 13:06 | XR_ITS ---
WS: [id number] Portable AP upright chest, 06/03/2021, 1315 hours Clinical Data: POST BRONCHOSCOPY Comparison: Portable chest, 06/03/2021, 0628 hours. Findings: The 2 right chest tubes remain in the same position. There is partial reexpansion of the ri ght lung. The lung markings are noted peripherally. The right apical pneumothorax is no longer presen t. The left lung remains the same. The subcutaneous emphysema along the right lateral chest wall has not changed. XR/XR chest 1V portable [id number] Impression: 1. Partial reexpansion of right lung. 2. No change in position of 2 right chest tubes. 3. No change in subcutaneous emphysema adjacent to the right chest wall.
--- NOTE | 2021-06-03 13:16 | PM.OP ---
Operative Report Date of procedure: June 03, 2021 Pre-op diagnosis: Status post right lower lobectomy/postop atelectasis Post-op diagnosis: other (Plug) Procedure done: Flexible therapeutic bronchoscopy Specimens removed/disposition: Mucous plug right upper lobe for culture Surgeon: Eladio García Anesthesia: General Complications: : Post procedure chest x-ray pending Brief History: Patient is a 50-year-old female who is now 3 days status post right lower lobectomy for an isolated right lower lobe mass which has preliminarily returned adenocarcinoma. Final pathology report pending. She developed atelectasis and volume loss on the right side consistent with probable mucous plugging to the right upper lobe. This did not improve despite aggressive pulmonary toilet. I have recommended therapeutic bronchoscopy. Procedure: Ms. Lopez was taken to the operating room theater where she was carefully positioned and underwent general endotracheal anesthesia. Appropriate timeout was completed. Flexible bronchoscope was inserted through endotracheal tube down to the level of the ben where there was immediate finding of pooling secretions. This was cleared with active suction with the termination of a mucous plug just beneath the takeoff of the right main bronchus obstructing the right upper lobe bronchus. This was actively suctioned and with the use of saline/bicarbonate solution as mucous plug was removed, collected, and sent for microbiological examination. Next, systematically, the entire right and left tracheobronchial trees were carefully inspected. The right lower lobe bronchus cuff appeared to be intact. There were no other endobronchial lesions identified. Mucosa was normal and not excessively friable. There was no evidence for extrinsic compression or submucosal infiltration. No other endobronchial lesions were seen. There was no other evidence for mucous plugging. The left side was completely clear. After completion of irrigation and suction, bronchoscope was removed under direct vision. Next, surgical dressings were changed and replaced. Epidural catheter was removed with the catheter intact. Chest tube Pleur-evac suction was also replaced. She tolerated procedure well, was awakened from general anesthesia, and transferred to the postoperative care unit where chest x-ray is pending.
--- NOTE | 2021-06-03 13:58 | PC.NURSE ---
Patient returned to unit after bronchoscopy procedure. Per report, patient tolerated well. Encouraging cough and deep breathing exercises, and use of incentive spirometer.
[2021-06-03] MEDS: lactated ringers 1,000 ML 100 ML IV (14:41)
[2021-06-03] MEDS: guaiFENesin 100 mg/5 mL UDC 10 mL 400 MG PO (15:08)
--- NOTE | 2021-06-03 15:37 | ANE.PACU2 ---
Inpatient post-anesthesia follow up: Airway intact: Yes Vital signs: Temperature 98.0 F Pulse Rate 69 Respiratory Rate 18 Blood Pressure 122/87 Pulse Oximetry 93 Oxygen Delivery Me thod Nasal Cannula Oxygen Flow Rate 4 Fraction of Inspir ed Oxygen Hydration adequate: Yes Nausea and vomiting: No Mental status: Baseline Additional Comments: No pain in PACU. On floor high pain rating. Epidural discontinued intra op. Transitioning to multi - modal pain medications.
[2021-06-03] MEDS: ipratropium-albuterol 3 mL Neb INHALATION (17:56)
[2021-06-03] MEDS: lidocaine 5% Patch 1 PATCH TOPICAL (18:39)
[2021-06-03] MEDS: docusate sodium 100 mg Capsule PO (21:39)
[2021-06-04] VITALS (18 sets, daily range): BP systolic 118–145; BP diastolic 77–86; PULSE 63–99; RESP 16–20; TEMP 36.4–36.9; O2SAT 92–99
[2021-06-04] MEDS: lactated ringers 1,000 ML 100 ML IV (01:07)
[2021-06-04] MEDS: diphenhydrAMINE 25 mg Capsule PO ×2 (01:08→01:46)
[2021-06-04] MEDS: TRAMadol 50 mg Tablet PO ×4 (01:08→23:52)
[2021-06-04] MEDS: oxyCODONE-APAP 5-325 mg Tablet 1 TAB PO ×4 (01:48→17:30)
[2021-06-04] MEDS: morphine 4 mg/mL SDV 1 mL 2 MG IVP (03:47)
[2021-06-04] MEDS: ketorolac 10 mg Tablet PO ×2 (05:36→11:56)
[2021-06-04] MEDS: levoFLOXacin 500 mg Tablet PO (05:36)
[2021-06-04] MEDS: guaiFENesin 100 mg/5 mL UDC 10 mL 200 MG PO ×3 (05:40→14:53)
--- NOTE | 2021-06-04 06:00 | XRR_ITS ---
PROCEDURE INFORMATION: Exam: XR Chest Exam date and time: 06/04/2021 6:00 AM Age: 50 years old Clinical indication: Device placement; Chest tube; Additional info: Pod#4 S/P lobectomy TECHNIQUE: Imaging protocol: XR of the chest. Views: 1 view. COMPARISON: CR XR chest 1V portable [id number] 06/03/2021 1:10 PM FINDINGS: Tubes, catheters and devices: 2 right-sided chest tubes with tip directed toward the apex medially, unchanged. Lungs: Postsurgical changes of the right hemithorax with reduced lung volume following lobectomy. Slight interval clearing with persistent patchy opacities at the base. The left lung is well aerated with no focal consolidation. Pleural spaces: Tiny residual right apical pneumothorax. Probable small right effusion. Left pleural space unremarkable. Heart/Mediastinum: Cardiac silhouette upper normal. Persistent rightward cardiomediastinal shift following lobectomy. Bones/joints: No acute bony abnormality. Soft tissues: Slight interval improvement right chest wall postsurgical soft tissue emphysema. XR/XR chest 1V portable [id number] IMPRESSION: No new abnormality. Postsurgical changes of the right thorax. Slight interval improved aeration of residual right lung.
[2021-06-04] MEDS: ipratropium-albuterol 3 mL Neb INHALATION ×3 (08:19→20:15)
[2021-06-04] MEDS: atorvastatin 40 mg Tablet 20 MG PO (08:35)
[2021-06-04] MEDS: ALPRAZolam 0.5 mg Tablet 1 MG PO ×2 (08:35→14:53)
[2021-06-04] MEDS: docusate sodium 100 mg Capsule PO (08:37)
[2021-06-04] MEDS: levothyroxine 125 mcg Tablet PO (08:37)
[2021-06-04] MEDS: cholecalciferol (vitamin D3) 1,000 unit Tablet 1000 UNIT PO (08:37)
[2021-06-04] MEDS: pantoprazole DR 40 mg Tablet PO (08:37)
[2021-06-04] MEDS: ascorbic acid 500 mg Tablet PO (08:37)
[2021-06-04] MEDS: lidocaine 5% Patch 1 PATCH TOPICAL (08:40)
[2021-06-04] MEDS: lactulose oral liq 20 gm/30 mL UDC 30 GM PO (10:11)
--- NOTE | 2021-06-04 13:11 | PC.NURSE ---
Patient ambulated 200 feet while pushing a wheel chair at this time. Patient did well. Patient's incisions were painted with Iodine and dressing replaced. Patient tolerated well.
--- NOTE | 2021-06-04 18:15 | P.PN_ITS ---
Subjective Subjective: Postop day #4 status post right lower lobectomy. 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 Chest tube is been on waterseal all day. Chest tube output this evening has been 40 cc for the past 7 hours. Pain has been under good control. She is in good spirits. Vitals/I&O/Wt Last Vital Signs Temp 97.9 F 06/04/21 16:00 Pulse 71 06/04/21 16:00 Resp 16 06/04/21 17:30 BP 143/81 06/04/21 16:00 Pulse Ox 94 06/04/21 17:30 06/04/21 06/04/21 06/04/21 06:59 14:59 22:59 Intake Total 1620 / 3060 1450 / 1450 Output Total 605 / 1115 Balance 1015 / 1945 1450 / 1450 Weight last 48 hrs Weight 210 lb Physical Exam Chest: OTHER: Thoracotomy incision is clean, dry, and intact. Chest tubes were discontinued. Chest tube insertion sites closed with retention sutures. Vaseline gauze and sterile dressing applied. Resp: OTHER: Improving aeration to the right lung by auscultation. Pulling 1500 cc on incentive spirometry. Urinary Catheter Management: Mosquera: Cath Placed During This Visit: yes Reason for Continuing Indwelling Catheter: Acute Urinary Retention or Obstruction Urinary Catheter Date of Insertion: 05/31/21 Urinary Catheter Time of Insertion: 14:15 Data : 06/02/21 04:04 06/02/21 04:04 Micro: Microbiology 06/03/21 12:29 Gram Stain - Final Lung Right Upper Lobe Bronchial Washings Culture - Preliminary A&P Assessment and plan (1) Status post lobectomy of lung: Status: Acute Plan Postop day #4 status post right lower lobectomy. Chest tubes have been discontinued. Plan: Chest x-ray in a.m. with tentative plans for discharge. Attestations Medical Necessity Statement*: Postop right lower lobectomy for adenocarcinoma. Coding Level of Care Code Acute Apple Press Operator for Pastora Rosas Diagnoses Status post lobectomy of lung Z90.2
--- NOTE | 2021-06-04 18:23 | PC.NURSE ---
Chest tubes removed by Dr. García at this time. Patient tolerated well.
[2021-06-04] MEDS: alum-mag-hydroxide-sime 30 mL UDC PO (19:34)
[2021-06-04] MEDS: morphine IR 15 mg Tablet PO (20:38)
[2021-06-04] MEDS: temazepam 15 mg Capsule PO (21:14)
[2021-06-05] VITALS (7 sets, daily range): BP systolic 127–156; BP diastolic 86–91; PULSE 77–88; RESP 16–20; TEMP 36.6–36.9; O2SAT 95–97
[2021-06-05] MEDS: ALPRAZolam 0.5 mg Tablet 1 MG PO (03:56)
[2021-06-05] MEDS: oxyCODONE-APAP 5-325 mg Tablet 1 TAB PO ×2 (03:56→08:33)
[2021-06-05] MEDS: bisacodyl 5 mg Tablet PO (04:32)
[2021-06-05] MEDS: levoFLOXacin 500 mg Tablet PO (05:04)
--- NOTE | 2021-06-05 06:00 | XRR_ITS ---
PROCEDURE INFORMATION: Exam: XR Chest Exam date and time: 06/05/2021 6:00 AM Age: 50 years old Clinical indication: Shortness of breath; Prior surgery; Additional info: Pod# 5 S/P lobectomy TECHNIQUE: Imaging protocol: XR of the chest. Views: 1 view. COMPARISON: CR (CHEST, ) 06/04/2021 6:33 AM FINDINGS: Tubes, catheters and devices: Right-sided chest tubes have been removed. Lungs: Reduced volume of the right lung again noted. Pleuroparenchymal thickening along the lateral lung base. No focal consolidation. Tiny apical pneumothorax may be present, similar to prior. No visible pleural effusion. The left lung is well aerated with no focal consolidation. Small residual right chest wall emphysema. Pleural spaces: See Lungs finding. Heart/Mediastinum: Unremarkable. No cardiomegaly. Bones/joints: Cervical fusion hardware. XR/XR chest 1V portable [id number] IMPRESSION: Postsurgical changes of the right hemithorax. Interval removal of right chest tubes. Small apical pneumothorax suspected, similar to prior.
[2021-06-05] MEDS: ipratropium-albuterol 3 mL Neb INHALATION (08:19)
[2021-06-05] MEDS: cholecalciferol (vitamin D3) 1,000 unit Tablet 1000 UNIT PO (08:24)
[2021-06-05] MEDS: guaiFENesin 100 mg/5 mL UDC 10 mL 200 MG PO (08:24)
[2021-06-05] MEDS: levothyroxine 125 mcg Tablet PO (08:24)
[2021-06-05] MEDS: ascorbic acid 500 mg Tablet PO (08:24)
[2021-06-05] MEDS: atorvastatin 40 mg Tablet 20 MG PO (08:24)
[2021-06-05] MEDS: pantoprazole DR 40 mg Tablet PO (08:33)
[2021-06-05] MEDS: TRAMadol 50 mg Tablet PO (08:35)
--- NOTE | 2021-06-05 08:44 | PM.DCS ---
Discharge Providers Date of Admission: 05/31/21 10:39 Date of Discharge: June 05, 2021 Attending Provider at Admission: Eladio García MD Attending Provider at Discharge: Eladio García MD Primary Care Provider: AGNEISZKA Abreu Diagnoses at Discharge Discharge Diagnosis (1) Status post lobectomy of lung: Details from hospital stay: Ms. Lopez is a 50-year-old female with a long history of tobacco use and a right lower lung mass which has shown some slow increase in size and increase in activity on PET scan. She has been followed by Dr. Woodruff for COPD as well as this right lower lobe lung mass. After discussion with Dr. Woodruff, given the size changes and increase in activity on PET scan, it has been recommended for resection. She was electively admitted on May 31 for planned right lower lobectomy. She underwent a right lower lobectomy through a muscle-sparing right thoracotomy incision. Postoperatively, she did well though she did develop postop atelectasis and mucous plugging requiring bronchoscopy on postop day #3 for clearance of the mucous plug. There was substantial improved aeration in the remaining right upper and middle lobes following this and with aggressive use of incentive spirometry, her chest x-ray continued to clear. Chest tubes were discontinued on postop day #4. X-ray this morning reveals a very small apical pneumothorax which has been stable. There is no substantial effusions. There is continued increasing volume and lung aeration in the right hemithorax. Postop discomfort is under good control. She is now pulling 1750 on incentive spirometry. Ambulating without assistance. She is eager for discharge home. We will proceed with a chlorhexidine shower this morning and plan for discharge to home with home health services. She will be scheduled for follow-up in my clinic in 1 week with a chest x-ray. Presently, at the time of discharge, she is in stable condition. Pulse oximetry on room air is 95%. 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 Status: Acute Reason for Visit Reason for Visit: right lower lobe nodule Physical Exam Chest: OTHER: Right thoracotomy incision is clean, dry, and intact. Chest tube sites are well approximated. Chest wall is stable. No palpable subcutaneous emphysema. Resp: OTHER: Improved breath sounds on the right weakness minimal crackles of the base. Otherwise remaining portion of exam is clear. Cardio: COMMON NORMALS: regular rate, regular rhythm, S1 normal heart sound present, No murmurs present (Cardio) and No rub (Cardio) RATE: regular rate RHYTHM: regular rhythm HEART SOUNDS: S1 normal heart sound present Extremity: COMMON NORMALS: capillary refill normal and no clubbing, cyanosis or edema Urinary Catheter Management: [place]: Cath Placed During This Visit: yes Reason for Continuing Indwelling Catheter: Acute Urinary Retention or Obstruction Urinary Catheter Date of Insertion: 05/31/21 Urinary Catheter Time of Insertion: 14:15 Discharge Data Studies Completed and Pending Completed Studies During Hospitalization Category Date Time Status CXRP [XR chest 1V portable [id number]] Routine Exams 05/31/21 17:21 Completed CXRP [XR chest 1V portable [id number]] Routine Exams 06/03/21 13:06 Completed XR chest 1V portable [id number] Routine Exams 06/01/21 06:00 Completed XR chest 1V portable [id number] Routine Exams 06/02/21 06:00 Completed XR chest 1V portable [id number] Routine Exams 06/03/21 06:00 Completed XR chest 1V portable [id number] Routine Exams 06/03/21 06:30 Completed XR chest 1V portable [id number] Routine Exams 06/04/21 06:00 Completed XR chest 1V portable [id number] Routine Exams 06/05/21 06:00 Completed Pathology: Surgical [PTH] Routine Pth 05/31/21 16:03 Completed Pending at discharge Category Date Time Status Antibody Identification Routine Lab 05/25/21 11:40 Results Bronch Washing Culture & GS Routine Lab 06/03/21 12:29 Results Fungal Culture not HR/SK/BL Routine Lab 06/03/21 12:27 Ordered Leukocyte Reduced RBC Routine Lab 05/25/21 11:40 Results Miscellaneous Test Routine Lab 05/31/21 16:03 Received Type and Screen - Cardiac Routine Lab 05/25/21 11:40 Results Radiology Impressions Chest X-Ray 06/05/21 06:00 IMPRESSION: Postsurgical changes of the right hemithorax. Interval removal of right chest tubes. Small apical pneumothorax suspected, similar to prior. Laboratory Results WBC 9.4 10^3/uL (4.0-10.0) 06/02/21 04:04 RBC 3.54 10^6/uL (4.1-5.3) L 06/02/21 04:04 Hgb 10.7 g/dL (11.5-15.3) L 06/02/21 04:04 Hct 34.8 % (37.0-47.0) L 06/02/21 04:04 MCV 98.3 fl (81-99) 06/02/21 04:04 MCH 30.2 pg (28.0-34.0) 06/02/21 04:04 MCHC 30.7 g/dL (30.0-36.0) 06/02/21 04:04 RDW 13.3 % (12.1-15.1) 06/02/21 04:04 Plt Count 229 10^3/cmm (130-400) 06/02/21 04:04 MPV 10.3 fL (7.4-10.4) 06/02/21 04:04 Neut % (Auto) 67.6 % 06/02/21 04:04 Lymph % (Auto) 24.3 % 06/02/21 04:04 [place] % (Auto) 7.0 % 06/02/21 04:04 Eos % (Auto) 0.5 % 06/02/21 04:04 Baso % (Auto) 0.3 % 06/02/21 04:04 Neut # (Auto) 6.35 10^3/uL (1.8-7.7) 06/02/21 04:04 Lymph # (Auto) 2.3 10^3/uL (0.8-4.8) 06/02/21 04:04 [place] # (Auto) 0.7 10^3/uL (0.2-0.9) 06/02/21 04:04 Eos # (Auto) 0.1 10^3/uL (0.0-0.8) 06/02/21 04:04 Baso # (Auto) 0.0 10^3/uL (0.0-0.1) 06/02/21 04:04 Nucleated RBC % (auto) 0 % 06/02/21 04:04 Nucleated RBCs # 0.0 /100WBC 06/02/21 04:04 PT 12.00 SECONDS (12.1-14.9) L 05/25/21 11:40 INR 0.85 (0.8-1.2) 05/25/21 11:40 Sodium 139 mmol/L (136-145) 06/02/21 04:04 Potassium 4.0 mmol/L (3.5-5.1) 06/02/21 04:04 Chloride 110 mmol/L (98-107) H 06/02/21 04:04 Carbon Dioxide 23 mmol/L (22-29) 06/02/21 04:04 Anion Gap 10.0 (5-19) 06/02/21 04:04 BUN 13 mg/dL (6-20) 06/02/21 04:04 Creatinine 0.6 mg/dL (0.5-0.9) 06/02/21 04:04 GFR Calculation 105.4 mL/min (90-130) 06/02/21 04:04 Glucose 106 mg/dL (65-115) 06/02/21 04:04 Calculated Osmolality 289 mOsm/kg (285-295) 06/02/21 04:04 Calcium 8.1 mg/dL (8.5-10.5) L 06/02/21 04:04 Urine Color Yellow (Yellow) 06/02/21 15:38 Urine Appearance Clear (CLEAR) 06/02/21 15:38 Urine pH 5 (5-7) 06/02/21 15:38 Ur Specific [place] 1.020 (1.005-1.030) 06/02/21 15:38 Urine Protein Neg (Negative) 06/02/21 15:38 Urine Glucose (UA) Norm (Normal) 06/02/21 15:38 Urine Ketones Negative (Negative) 06/02/21 15:38 Urine Blood 3+ (Negative) H 06/02/21 15:38 Urine Nitrate Negative (Negative) 06/02/21 15:38 Urine Bilirubin Neg (Negative) 06/02/21 15:38 Urine Urobilinogen Neg mg/dL (Negative) 06/02/21 15:38 Ur Leukocyte Esterase Negative (Negative) 06/02/21 15:38 Urine RBC 15-25 /hpf (0-2) H 06/02/21 15:38 Urine WBC None /hpf (0-5) 06/02/21 15:38 Ur Squamous Epith Cells Rare /hpf (0-5) 06/02/21 15:38 Amorphous Sediment 3+ /hpf 06/02/21 15:38 Urine Bacteria Trace /hpf (NONE) 06/02/21 15:38 Urine Mucus 3+ /hpf 06/02/21 15:38 Blood Type O Positive 05/25/21 11:40 Rho(D) Type Positive 05/25/21 11:40 Antibody Screen Positive 05/25/21 11:40 Prewarmed Antibody Srcn Negative 05/25/21 11:40 Antibody Identification Cold Auto Aintobody 05/25/21 11:40 Cold Antibody Screen Positive 05/25/21 11:40 Crossmatch See Detail 05/25/21 11:40 Procedures Performed Right lower lobectomy on May 31, 2021 Vitals Last Vital Signs Temp 98.0 F 06/05/21 07:43 Pulse 77 06/05/21 08:26 Resp 18 06/05/21 08:33 BP 127/86 06/05/21 07:43 Pulse Ox 95 06/05/21 08:19 Discharge Plan Discharge Patient Disposition: Home Health Service Condition: Stable Prescriptions: New oxycodone-acetaminophen 5-325 mg Tablet 1 tab PO Q6H PRN (Reason: Moderate Pain) Qty: 20 0RF levofloxacin 500 mg Tablet 500 mg PO DAILY@0600 Qty: 3 0RF Continued lidocaine 5 % adhesive patch,medicated 1 patch topical DAILY PRN (Reason: Pain) 0RF Rx Instructions: leave on most painful area for up to 12 hrs Spiriva Respimat 2.5 mcg/actuation mist 2 puff inhalation DAILY Qty: 4 3RF levothyroxine 125 mcg capsule 125 mcg PO DAILY 0RF cholecalciferol (vitamin D3) 25 mcg (1,000 unit) capsule 25 mcg PO DAILY 0RF simvastatin 5 mg tablet 5 mg PO DAILY 0RF Vitamin C 500 mg Tablet 500 mg PO DAILY 0RF Discharge Orders: Discharge Order (Routine); Ordered 06/05/21 Ordered By: Eladio García Referrals: Eladio García MD [Physician] - 1 week ([facility] will call you Sunday to set up an appt to see Dr. García with a cxr day of clinic visit) Discharge Diet: Usual diet Discharge Activity: Limit activity as instructed Activity Restrictions/Additional Instructions: May shower daily with dressings off. Dry incisions completely afterwards and recover if desired No swimming or tub baths x2 weeks No lifting more than 5 pounds with right arm for the next 2 weeks Report any incision swelling, increasing redness, drainage, or fever Use incentive spirometer frequently. Please call [facility] office tomorrow after 8 AM to confirm follow-up appointment in 1 week Discharge Attestations Time Spent in Discharge Care*: less than 30 min Specific Discharge Activities: educating patient, discussing with business case analyst/social workers/dc planners, documenting/other paperwork and evaluating patient/reviewing data Time Spent in Smoking Cessation: 3 to 10 minutes Status at Discharge: Cognitive status at discharge: cognitively intact, Behavioral status at discharge: cooperative, Functional status at discharge: independent ambulation, Overall status at discharge: patient is progressing back to baseline Quality Metrics Clinical Quality Measures [ No reported AMI, CVA or VTE this stay] Coding Level of Care Code Acute Chg FW DC note Diagnoses Status post lobectomy of lung Z90.2
[2021-06-05] MEDS: chlorhexidine gluconate 4% Btl 118 mL 1 APPLIC TOPICAL (10:17)
--- NOTE | 2021-06-05 10:19 | PC.NURSE ---
Patient took a shower with Betapace soap and dressing were replaced. Patient tolerated well.
--- NOTE | 2021-06-05 11:55 | PC.NURSE ---
Reviewed discharge with patient at this time. Patient verbalized understanding of discharge medications and the need to make a follow up appointment tomorrow with Dr. García in a week. Patient verbalized understanding. Patient is A&Ox3. Respirations even and non-labored on room air. Patient wheel chaired to private car.
[2021-06-09 13:48] LABS: Miscellaneous Test See Scanned Lab Rpt
== END 2021-06-05 12:00 | disposition home health service (06) | DRG 164 ==
LOC: ICU 16:31 → MEDSURG 06-02 09:24
PROVIDERS: Admitting Provider Thoracic Surgery (Cardiothoracic Vascular Surgery); PCP Nurse Practitioner; Visit Provider Thoracic Surgery (Cardiothoracic Vascular Surgery)
PROC: 0BT60ZZ Resection of Right Lower Lobe Bronchus, Open Approach (ICD-10-PCS; CPT 32480; principal; 2021-05-31 11:40)
PROC: 0BJ08ZZ Inspection of Tracheobronchial Tree, Via Natural or Artificial Opening Endoscopic (ICD-10-PCS; CPT 31622; principal; 2021-06-03 12:00)
DX: C34.31 Malignant neoplasm of lower lobe, right bronchus or lung (principal); J95.89 Other postprocedural complications and disorders of respiratory system, not elsewhere classified; J98.11 Atelectasis; J95.811 Postprocedural pneumothorax; F17.210 Nicotine dependence, cigarettes, uncomplicated; Z80.1 Family history of malignant neoplasm of trachea, bronchus and lung; J44.9 Chronic obstructive pulmonary disease, unspecified
CPT/HCPCS: 01996; 31645; 36415; 62326; 71045; 80048; 81001; 81003; 85025; 85610; 86850; 86870; 86900; 86920; 87070; 87205; 88309; 88342; 94640; 94664; 96374; J0330; J0690; J1100; J1170; J1885; J1956; J2250; J2270; J2370; J2405; J2704; J2710; J2795; J3010; J3370; J3490; J7030; J7611

== ENCOUNTER → 2021-06-16 09:51 | Outpatient (BNVA) | payer OTHER, SELFPAY | PROVIDERS: PCP Nurse Practitioner; Visit Provider Thoracic Surgery (Cardiothoracic Vascular Surgery) | DX: C34.90 Malignant neoplasm of unspecified part of unspecified bronchus or lung (principal); Z90.2 Acquired absence of lung [part of]; Z48.812 Encounter for surgical aftercare following surgery on the circulatory system | CPT/HCPCS: 99024 ==

== ENCOUNTER 2021-07-04 10:30 | Emergency (ER) | payer OTHER, SELFPAY ==
[2021-07-04 10:57] VITALS: BP 114/76; PULSE 102; RESP 18; TEMP 36.7; O2SAT 96; BMI 30.7
--- NOTE | 2021-07-04 11:16 | ED_ITS ---
HPI - SOB/Dyspnea General: Chief Complaint: Shortness of Breath/Dyspnea Stated Complaint: Lower [place], congestion and coughing Time Seen by Provider: 07/04/21 11:08 History of Present Illness: HPI Narrative: Ms. Lopez is a 50-year-old lady with complex past medical history including tobaccoism, COPD, history of right lower lobe lobectomy secondary to ad enocarcinoma not currently on chemotherapy or radiation who presents to the emergency department department due to shortness of breath cough. Symptom onset was subacute yesterday morning without known specific provoking factor. She had perhaps mild nasal congestion over the past few days. She endorses cough which is mildly productive and has been persistent. Intensity symptoms is moderate. Course has persisted. No sharp chest pain. No other signs of systemic illness. No other specific changes in health, exacerbating, or alleviating factors identified. Pertinent past history: COPD and other Onset (ago): hour(s) Context: other Severity: moderate Associated symptoms: Reports cough Review of Systems General: Reports: 10 or more systems reviewed and unremarkable except in HPI and below PFSH ED PFSH: Medical History COPD (chronic obstructive pulmonary disease) Surgical History Status post lobectomy of lung Family History Other No pertinent family history Social History Smoking and tobacco status: current every day smoker cigarettes Packs smoked per day: 1 Years cigarettes smoked: 34 Alcohol intake: former Lives independently: Yes Household members: significant other Housing: House Marital status: Number of children: 1 Pets and animals: Yes Pets & animals: cat(s) and dog(s) Physical Exam Const: COMMON NORMALS: alert GENERAL APPEARANCE: cooperative, well developed and ill appearing (Mildly) HENMT: COMMON NORMALS: normocephalic and atraumatic HEAD & SCALP: normocephalic and atraumatic THROAT: posterior oropharynx normal Eye: COMMON NORMALS: conjunctivae normal CONJUNCTIVA: Yes conjunctivae normal SCLERA: sclerae normal Neck/C-Spine: COMMON NORMALS: supple GENERAL: Yes trachea midline Resp: EFFORT & INSPECTION: Yes able to speak in complete sentences and Yes Actively coughing AUSCULTATION: rhonchi and wheezes Cardio: COMMON NORMALS: regular rhythm RATE: tachycardic RHYTHM: regular rhythm GI: COMMON NORMALS: Soft to palpation PALPATION: Yes Soft to palpation and No Tenderness to palpation present (GI) PERCUSSION: normal to percussion Extremity: GENERAL: Yes normal exam except as noted and No edema Neuro: COMMON NORMALS: moves all extremities SENSORIUM/ORIENTATION: Yes alert and No Orientation impaired Psych: COMMON NORMALS: mental status grossly normal and Normal thought process present THOUGHT PROCESS: Normal thought process present Course ED course: - Patient was seen and evaluated by me at bedside - Patient placed on cardiac monitors, IV access obtained - Initial evaluation notable for exam as above - Labs and xrays personally interpreted by me - Fluids, RT treatment, steroids ordered - Labs notable for no leukocytosis, normal hemoglobin. Metabolic panel with mild evidence of dehydration. Flu and Covid negative. - Imaging notable for no lobar consolidation or pneumothorax. Radiology notes blunting of the right costophrenic angle. - Upon serial reexamination after treatment the patient was improved. Repeat lung exam with better aeration. More asymmetry with improved rhonchorous sounds in the right mid region. Patient not tachycardic during exam. Additional RT treatment ordered with further improvement. - Based on patient history, evaluation, and testing as interpreted the most likely cause of the patient's condition is bacterial pneumonia with COPD exace rbation. I did discuss other possible etiologies given patient's underlying medical conditions. Patient is comfortable foregoing further investigation. - The results of ED evaluation were discussed with the patient including prescriptions and/or symptomatic cares (if applicable) including appropriate and responsible use, followup plan, and return precautions. The patient verbalized understanding and felt safe for discharge. - Patient discharged in satisfactory condition. Note: Click bubbles or prepopulated talamantes in note writing are used for assistance with data collection and billing and are inherently more limited than narrative and other text portions of this note. Please use narrative for additional clinical history and defer to narrative/free test for any case of contradictory information. If information appears in only free text or click bubble it should be considered present or absent as reported. Please contact note technical document writer for clarifications of clinical information or contradictory information. MDM is a brief summary, contradictory or erroneous seeming information should be clarified and full note should be reviewed. Vital Signs: Vital signs: Vital Signs Temperature 98.1 F 07/04/21 10:57 Pulse Rate 95 07/04/21 13:23 Respiratory Rate 24 H 07/04/21 13:23 Blood Pressure 119/80 07/04/21 13:23 Pulse Oximetry 95 07/04/21 13:23 MDM - SOB/Dyspnea Medical Decision Making 50-year-old lady with history of lung cancer and COPD presenting with shortness of breath. There is focality appreciated in lung sounds. Patient improved with symptom treatment. Satisfactory for outpatient management for bacterial pneumonia and COPD exacerbation. Medical Records I reviewed the patient's medical records. Lab Data I reviewed the patient's lab results. : 07/04/21 11:32 07/04/21 11:32 Labs/Radiology: Radiology Impressions Chest X-Ray 07/04/21 11:26 IMPRESSION: 1. There is blunting of the right costophrenic angle, likely indicating a small pleural effusion versus chronic pleural thickening. 2. No pneumothorax. Laboratory Results WBC 7.9 10^3/uL (4.0-10.0) 07/04/21 11:32 RBC 4.75 10^6/uL (4.1-5.3) 07/04/21 11:32 Hgb 14.4 g/dL (11.5-15.3) 07/04/21 11:32 Hct 43.1 % (37.0-47.0) 07/04/21 11:32 MCV 90.7 fl (81-99) 07/04/21 11:32 MCH 30.3 pg (28.0-34.0) 07/04/21 11:32 MCHC 33.4 g/dL (30.0-36.0) 07/04/21 11:32 RDW 12.8 % (12.1-15.1) 07/04/21 11:32 Plt Count 293 10^3/cmm (130-400) 07/04/21 11:32 MPV 10.3 fL (7.4-10.4) 07/04/21 11:32 Neut % (Auto) 64.3 % 07/04/21 11:32 Lymph % (Auto) 24.5 % 07/04/21 11:32 [place] % (Auto) 7.8 % 07/04/21 11:32 Eos % (Auto) 2.2 % 07/04/21 11:32 Baso % (Auto) 0.9 % 07/04/21 11:32 Neut # (Auto) 5.07 10^3/uL (1.8-7.7) 07/04/21 11:32 Lymph # (Auto) 1.9 10^3/uL (0.8-4.8) 07/04/21 11:32 [place] # (Auto) 0.6 10^3/uL (0.2-0.9) 07/04/21 11:32 Eos # (Auto) 0.2 10^3/uL (0.0-0.8) 07/04/21 11:32 Baso # (Auto) 0.1 10^3/uL (0.0-0.1) 07/04/21 11:32 Nucleated RBC % (auto) 0 % 07/04/21 11:32 Nucleated RBCs # 0.0 /100WBC 07/04/21 11:32 Sodium 136 mmol/L (136-145) 07/04/21 11:32 Potassium 4.7 mmol/L (3.5-5.1) 07/04/21 11:32 Chloride 104 mmol/L (98-107) 07/04/21 11:32 Carbon Dioxide 20 mmol/L (22-29) L 07/04/21 11:32 Anion Gap 16.7 (5-19) 07/04/21 11:32 BUN 5 mg/dL (6-20) L 07/04/21 11:32 Creatinine 0.6 mg/dL (0.5-0.9) 07/04/21 11:32 GFR Calculation 105.4 mL/min (90-130) 07/04/21 11:32 Glucose 105 mg/dL (65-115) 07/04/21 11:32 Calculated Osmolality 280 mOsm/kg (285-295) L 07/04/21 11:32 Calcium 9.6 mg/dL (8.5-10.5) 07/04/21 11:32 Total Bilirubin 0.6 mg/dL (0.15-1.2) 07/04/21 11:32 AST 25 U/L (0-32) 07/04/21 11:32 ALT 25 U/L (0-33) 07/04/21 11:32 Alkaline Phosphatase 111 IU/L (35-105) H 07/04/21 11:32 Total Protein 8.1 g/dL (6.6-8.7) 07/04/21 11:32 Albumin 4.6 g/dL (3.5-5.2) 07/04/21 11:32 Globulin 3.5 g/dL (1.3-4.6) 07/04/21 11:32 Influenza Type A Ag Negative (Negative) 07/04/21 11:37 Influenza Type B Ag Negative (Negative) 07/04/21 11:37 SARS-CoV-2 Ag (Rapid) Negative (Negative) 07/04/21 11:37 EKG Data EKG 1: I personally reviewed and interpreted this EKG as follows: EKG Interpretation Date: 07/04/21 EKG interpretation time: 11:18 Interpretation: Twelve-lead EKG shows a regular rhythm at a rate of 91. IA interval 174, QRS duration 91, QTc 396. Normal axis. Interpretation: Sinus rhythm. PVC. Discharge Plan Discharge Patient Disposition: Home Clinical Impression: Pneumonia, Acute exacerbation of chronic obstructive airways disease Condition: Stable Prescriptions: New albuterol sulfate 90 mcg/actuation HFA aerosol inhaler 2 inh inhalation Q8H PRN (Reason: shortness of breath or wheezing) Qty: 8.5 0RF Augmentin 875-125 mg tablet 1 tab PO BID Qty: 20 0RF prednisone 50 mg tablet 50 mg PO DAILY 5 Days Qty: 5 0RF Rx Instructions: start in the morning on 07/05 No Action lidocaine 5 % adhesive patch,medicated See Rx Instructions .ROUTE .COMPLEX 0RF Rx Instructions: 1 patch topically daily prn pain (leave on for 12 hours and off for 12 hours) Spiriva Respimat 2.5 mcg/actuation mist 2 puff inhalation DAILY Qty: 4 3RF cholecalciferol (vitamin D3) 25 mcg (1,000 unit) capsule 25 mcg PO .OCCASIONALLY 0RF ascorbic acid (vitamin C) [Vitamin C] 500 mg Tablet 500 mg PO .OCCASIONALLY 0RF Tylenol Ex Str Rapid Release 500 mg Tablet 1,000 mg PO Q6H PRN (Reason: Pain) 0RF levothyroxine 125 mcg Tablet 125 mcg PO QAM 0RF ibuprofen 200 mg Tablet 400 mg PO Q6H PRN (Reason: Pain) 0RF Discharge Orders: Discharge ED (Routine); Ordered 07/04/21 Ordered By: Reagan Leon Referrals: Danyelle Carl FNP [Primary Care Provider] - Discharge Diet: Usual diet Discharge Activity: Increase activity as tolerated Patient Instructions: COPD (Chronic Obstructive Pulmonary Disease) (ED), How to Use a Nebulizer (ED), Pneumonia (ED) Activity Restrictions/Additional Instructions: Thank you for visiting the emergency department. You were seen and evaluated for shortness of breath and cough. The likely cause of your symptoms is a combination of pneumonia and COPD. You will be given prescriptions for treatmen t of this. Please follow-up with your primary care provider. Please return to the emergency department for worsening symptoms, chest pain, or anything else that you are concerned about and feel needs emergency department evaluation. Coding Level of Care Code ED Senior Sales Manager for [employer] Fwd Exam Comprehensive
--- NOTE | 2021-07-04 11:26 | ECG_ITS ---
[facility] Test Date: 2021-07-04 Pat Name: Max Lopez Department: Room: Gender: Female Geoint Analyst: : 1970 Requested By: Reagan Leon Order Number: [id number] Corin MD: Fabiana Elizabeth M.D. Measurements Intervals [place] Rate: 91 P: 51 NM: 174 QRS: 71 QRSD: 91 T: 11 QT: 348 QTc: 429 Interpretive Statements SINUS RHYTHM WITH OCCASIONAL ECTOPIC PREMATURE COMPLEXES LOW QRS VOLTAGE IN PRECORDIAL LEADS [QRS DEFLECTION < 1.0 mV IN CHEST LEADS] No previous ECG available for comparison Electronically Signed On 07-04-2021 20:19:02 CDT by Fabiana Elizabeth M.D. [email or web address]
--- NOTE | 2021-07-04 11:26 | XRR_ITS ---
PROCEDURE INFORMATION: Exam: XR Chest Exam date and time: 07/04/2021 10:30 AM Age: 50 years old Clinical indication: Cough and shortness of breath; Additional info: Cough, SOB TECHNIQUE: Imaging protocol: XR of the chest. Views: 1 view. Total images: 1 COMPARISON: CR (CHEST, ) 06/05/2021 6:46 AM FINDINGS: Lungs: Unremarkable. No consolidation. Pleural spaces: There is blunting of the right costophrenic angle, likely indicating a small pleural effusion versus chronic pleural thickening. No pneumothorax. Heart/Mediastinum: Unremarkable. No cardiomegaly. Bones/joints: Spinal fusion hardware noted. XR/XR chest 1V portable [id number] IMPRESSION: 1. There is blunting of the right costophrenic angle, likely indicating a small pleural effusion versus chronic pleural thickening. 2. No pneumothorax.
[2021-07-04 11:40] VITALS: PULSE 89; RESP 18; O2SAT 94
[2021-07-04 11:40] LABS: Basophils # 0.1 10^3/uL (0.0-0.1); Basophils % 0.9 %; Eosinophils # 0.2 10^3/uL (0.0-0.8); Eosinophils % 2.2 %; Hematocrit 43.1 % (37.0-47.0); Hemoglobin 14.4 g/dL (11.5-15.3); Lymphocytes # 1.9 10^3/uL (0.8-4.8); Lymphocytes % 24.5 %; Mean Corpuscular HGB Conc 33.4 g/dL (30.0-36.0); Mean Corpuscular Hemoglobin 30.3 pg (28.0-34.0); Mean Corpuscular Volume 90.7 fl (81-99); Mean Platelet Volume 10.3 fL (7.4-10.4); Monocytes # 0.6 10^3/uL (0.2-0.9); Monocytes % 7.8 %; Neutrophils # 5.07 10^3/uL (1.8-7.7); Neutrophils % 64.3 %; Nucleated Red Blood Cells % 0 %; Platelet Count 293 10^3/cmm (130-400); Red Blood Count 4.75 10^6/uL (4.1-5.3); Red Cell Distribution Width 12.8 % (12.1-15.1); White Blood Count 7.9 10^3/uL (4.0-10.0)
[2021-07-04] MEDS: ipratropium-albuterol 3 mL Neb INHALATION (11:40)
[2021-07-04] MEDS: lactated ringers 500 ML 999 ML IV (11:42)
[2021-07-04 11:55] VITALS: PULSE 90
[2021-07-04 12:12] LABS: Influenza A by IFA Negative (Negative); Influenza B by IFA Negative (Negative); SARS Covid-2 Antigen Negative (Negative)
[2021-07-04 12:15] LABS: Alanine Aminotransferase 25 U/L (0-33); Albumin Level 4.6 g/dL (3.5-5.2); Alkaline Phosphatase 111 IU/L (35-105); Anion Gap 16.7 (5-19); Aspartate Amino Transferase 25 U/L (0-32); Blood Urea Nitrogen 5 mg/dL (6-20); Calcium 9.6 mg/dL (8.5-10.5); Carbon Dioxide 20 mmol/L (22-29); Chloride 104 mmol/L (98-107); Globulin 3.5 g/dL (1.3-4.6); Glomerular Filtration Rate 105.4 mL/min (90-130); Glucose 105 mg/dL (65-115); Osmolality Calculated 280 mOsm/kg (285-295); Potassium 4.7 mmol/L (3.5-5.1); Sodium 136 mmol/L (136-145); Total Bilirubin 0.6 mg/dL (0.15-1.2); Total Protein 8.1 g/dL (6.6-8.7)
--- NOTE | 2021-07-04 12:43 | PC.PHAR ---
pt states she takes care of her own medications-pt states she stop taking her simvastatin 10mg daily and bupropion 150mg daily and gabapentin 300mg tid medication on [facility] pt states she stop taking them at least a month ago-
[2021-07-04 12:44] VITALS: PULSE 82; RESP 18; O2SAT 96
[2021-07-04 13:04] VITALS: BP 119/80; PULSE 86; RESP 25; O2SAT 96
[2021-07-04 13:23] VITALS: BP 119/80; PULSE 95; RESP 24; O2SAT 95
== END 2021-07-04 13:25 | disposition home or self-care (01) ==
PROVIDERS: Emergency Provider Emergency Medicine; PCP Nurse Practitioner
DX: J44.0 Chronic obstructive pulmonary disease with (acute) lower respiratory infection (principal); J18.9 Pneumonia, unspecified organism; J44.1 Chronic obstructive pulmonary disease with (acute) exacerbation; F17.210 Nicotine dependence, cigarettes, uncomplicated; Z20.822 Contact with and (suspected) exposure to COVID-19
CPT/HCPCS: 71045; 80053; 85025; 87040; 87426; 87804; 93005; 94640; 96361; 96374; 99284; J2930; J7611

== ENCOUNTER 2021-07-20 10:36 | Outpatient (CLI) | payer OTHER, SELFPAY ==
--- NOTE | 2021-07-20 14:33 | ONC CON_ITS ---
Dr. Cline New Patient Note Patient: Max Quinn Unit #: [id number]: 1970 Dicatated By: Abiodun Cline M.D.Date of Visit: Jul 20, 2021 Onc MED New Patient/Consult Referring Physician: Isidoro Woodruff History of Present Illness: Ms. Max quinn, is a 50-year-old female, [place] , history of cervical cancer, and with longstanding history of smoking and right lower lobe lung mass initially seen on chest x-ray done in October 2012 and repeat chest x-ray on September 15, 2020 showed right lung base defined density was somewhat larger and follow-up CT scan of chest done on November 23, 2020 showed some solid mass at the right lung base abuts the right hemidiaphragm measuring 2.6 x 3.4 x 3.2 cm highly suspicious for pulmonary neoplasm, subsequently underwent CT PET scan on December 11, 2020 which showed right anterior lower lobe mass measuring 2.9 x 3.2 cm semisolid with SUV of 3, which was reported may be benign inflammatory uptake versus low-grade malignancy and there were no findings that would suggest metastatic disease on CT PET scan Repeat CT PET scan done on April 02, 2021 showed minimal increase in nonfocal FDG activity 3.7 compared to 3 previously in November 2020 in the right lower lobe lesion but no change in the size, , As per patient she was referred to Dr. 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 Pathological stage T1c, N0, MX stage IA3 Patient still smoke about pack a day, denies any fever chills denies any nausea or vomiting denies any diarrhea constipation denies any shortness of breath at rest denies any hemoptysis or hematemesis denies any new bony pains. Past Medical History: Ms. Fans medical history consists of chronic obstructive pulmonary disease, chronic pain, depression, history of cervical cancer, history of thyroid cancer, and hypothyroidism. Past Surgical History: Ms. Fans surgical/procedural history consists of bronchoscopy and right lower lobectomy. Medications: Euthyrox 1 Tablet (of 125 mcg) Oral daily Allergies: No Known Allergies. Social History: Ms. Quinn is . She is a daily smoker who has smoked 0.5 packs/day for 34 years. She has no history of drinking. She has indicated exposure to the following products: cigarettes. Family History: There is no documented family history. Review Of Symptoms: Review of Systems is not available for this patient. Vital Signs: Performed on Jul 20, 2021 11:20: 4, 5, 30.34 (HIGH), 1.95 sq.m, 66 in, 98 %, 89 /min, 19 /min, 125/82 mm(hg), 97.4 F (LOW), and 188 lbs (HIGH). Performance Status: 0 - Fully active, able to carry on all predisease activities without restrictions. (ECOG) Physical Examination: ENMT - No mouth sores, no thrush, no jaundice, Respiratory - Poor air entry with mild wheezing bilaterally, Cardiovascular - Regular rate and rhythm of heart, Abdomen - Soft, bowel sounds present, Extremities - No visible edema. Lab/Imaging: Most recent lab results are not available for this patient. Impression: T1c, N0, MX stage I A3, moderately differentiated mucinous and nonmucinous adenocarcinoma size 2.6 cm per right lower lobe lobectomy done on May 31, 2021, final pathology report showed clear surgical margins no lymphovascular invasion or visceropleural invasion seen, 0 out of 1 lymph node positive for metastatic disease, Now being observed COPD Past medical history significant for cervical cancer,And history of thyroid resection Hypothyroidism Chronic pain syndrome Plan: Discussed with patient regarding her disease status and treatment options, patient recently underwent right lower lobectomy for early stage non-small cell lung cancer and final pathology report confirmed 2.6 cm, moderately differentiated invasive mucinous/nonmucinous adenocarcinoma with clear surgical margin and no lymphovascular invasion seen, no visceral pleural invasion seen, pathological stage IA3, as per NCCN guidelines, observation and follow-up with CT scan and physical exam recommended She will return to clinic in 3 months with CBC CMP and CT scan of chest Patient was advised to quit smoking and was offered any assistance she may need. Signed By: Abiodun Cline M.D. <<Signature on File>>
== END 2021-07-20 10:37 | disposition home or self-care (01) ==
PROVIDERS: PCP Nurse Practitioner; Visit Provider Internal Medicine Hematology & Oncology
DX: C34.31 Malignant neoplasm of lower lobe, right bronchus or lung (principal); J44.9 Chronic obstructive pulmonary disease, unspecified; F17.210 Nicotine dependence, cigarettes, uncomplicated; E03.9 Hypothyroidism, unspecified; G89.4 Chronic pain syndrome; Z79.899 Other long term (current) drug therapy; Z90.2 Acquired absence of lung [part of]
CPT/HCPCS: 99204

== ENCOUNTER → 2021-07-22 09:38 | Outpatient (BNVA) | payer OTHER, SELFPAY | PROVIDERS: PCP Nurse Practitioner; Visit Provider Thoracic Surgery (Cardiothoracic Vascular Surgery) | DX: Z98.890 Other specified postprocedural states (principal) | CPT/HCPCS: 99024 ==

== ENCOUNTER 2021-11-28 13:52 | Oncology outpatient (recurring) (ONCR) | payer OTHER, SELFPAY ==
--- NOTE | 2021-11-25 11:16 | CT_ITS ---
WS: [id number] CT CHEST WITH INTRAVENOUS CONTRAST HISTORY: LUNG CANCER TECHNIQUE: Contiguous 5 mm axial imaging performed on the thorax. Coronal and sagittal reformats are submitted. All CT scans at [facility] use at least one of these dose optimization techniques: automated exposure control; mA and/or kV adjustment per patient size (includes targeted exams where dose is matched to clinical indication); or iterative reconstruction. CONTRAST: Omnipaque 350; 95 mL IV. DLP: 700.58 mGy.cm COMPARISON: 11/23/[address] 04/02/2021 Lungs and central airway: Interval RIGHT lower lobectomy. Previously described subsolid mass in the R IGHT lower lobe has been removed. Mild pleural thickening at the RIGHT lung base. No recurrent mass. Very subtle area of groundglass attenuation at the LEFT lung apex is unchanged. No new mass or nodule . Pleura: Normal. No pleural effusion. Heart and pericardium: Normal size heart with no pericardial effusion. Mediastinum and sofia: No mediastinum or hilar adenopathy. Vessels: Mild atherosclerosis aorta. Normal size pulmonary artery. Chest wall and lower neck: No soft tissue masses. Upper abdomen: Small hiatal hernia. Two intensely enhancing nodules in the liver. These measure appro ximately 7 mm in diameter and are both in the RIGHT lobe of the liver consistent with hemangiomas. Be tter seen on today's imaging study due to early arterial enhancement. No adrenal mass. Osseous structures: Negative. CT/CT chest w con* [id number] IMPRESSION: 1. Status post RIGHT lower lobectomy. 2. No new or recurrent pulmonary nodule or mass. 3. No adenopathy. 4. No change in the PET/CT negative groundglass attenuation LEFT apex. 5. Hepatic hemangiomas. 6. No adrenal mass.
[2021-11-25] MEDS: iohexol 350 mg/mL 100 mL Btl IV (12:05)
[2021-11-25 12:16] LABS: Basophils # 0.1 10^3/uL (0.0-0.1); Eosinophils # 0.1 10^3/uL (0.0-0.8); Eosinophils % 2.3 %; Hematocrit 40.9 % (37.0-47.0); Hemoglobin 13.3 g/dL (11.5-15.3); Lymphocytes # 2.3 10^3/uL (0.8-4.8); Lymphocytes % 37.7 %; Mean Corpuscular HGB Conc 32.5 g/dL (30.0-36.0); Mean Corpuscular Volume 92.3 fl (81-99); Monocytes # 0.4 10^3/uL (0.2-0.9); Neutrophils % 52.8 %; Nucleated Red Blood Cells % 0 %; Platelet Count 312 10^3/cmm (130-400); Red Blood Count 4.43 10^6/uL (4.1-5.3); Red Cell Distribution Width 12.7 % (12.1-15.1); White Blood Count 6.1 10^3/uL (4.0-10.0)
[2021-11-25 12:39] LABS: Alanine Aminotransferase 25 U/L (0-33); Albumin Level 3.7 g/dL (3.5-5.2); Alkaline Phosphatase 107 IU/L (35-105); Anion Gap 13.1 (5-19); Aspartate Amino Transferase 18 U/L (0-32); Blood Urea Nitrogen 5 mg/dL (6-20); Calcium 8.8 mg/dL (8.5-10.5); Carbon Dioxide 27 mmol/L (22-29); Chloride 102 mmol/L (98-107); Globulin 2.9 g/dL (1.3-4.6); Glomerular Filtration Rate 105.4 mL/min (90-130); Glucose 99 mg/dL (65-115); Osmolality Calculated 283 mOsm/kg (285-295); Potassium 4.1 mmol/L (3.5-5.1); Sodium 138 mmol/L (136-145); Total Bilirubin 0.2 mg/dL (0.15-1.2); Total Protein 6.6 g/dL (6.6-8.7)
== END 2021-12-14 23:59 | disposition home or self-care (01) ==
PROVIDERS: PCP Nurse Practitioner; Visit Provider Internal Medicine Hematology & Oncology
DX: Z08 Encounter for follow-up examination after completed treatment for malignant neoplasm (principal); Z85.118 Personal history of other malignant neoplasm of bronchus and lung; J44.9 Chronic obstructive pulmonary disease, unspecified; Z85.41 Personal history of malignant neoplasm of cervix uteri; G89.4 Chronic pain syndrome; Z90.2 Acquired absence of lung [part of]; E03.9 Hypothyroidism, unspecified; F17.210 Nicotine dependence, cigarettes, uncomplicated
CPT/HCPCS: 36415; 71260; 80053; 85025; 99214; G0463; Q9967

== ENCOUNTER 2021-12-22 08:36 | Outpatient (CLI) | payer OTHER, SELFPAY ==
--- NOTE | 2021-12-22 09:27 | XR_ITS ---
WS: [id number] Chest 2 views, 12/22/2021 Clinical Data: COPD Comparison: Portable chest, 07/14/2021. Findings: No nodules or masses are seen. There may be a small right pleural effusion, possibly locul ated effusion or right pleural reaction with right diaphragm elevation. There is a minimal mediastina l shift from left to right. The heart is normal. The pulmonary vascularity is not increased. No pneum onia or pneumothorax is seen. The left lung is normal. There is an old fracture of the lateral aspect of the right fifth rib. There is an anterior cervical disc fusion. XR/XR chest 2V* [id number] Impression: 1. Elevation of the right diaphragm with possible small effusion, loculated eff usion or pleural reaction. 2. Volume loss of the right lung with shift of the heart and mediastinum from l eft to right.
--- NOTE | 2021-12-22 09:45 | PFTS_ITS ---
Date of Study:12/22/21 Date of Dictation: MECHANICS: Forced vital capacity (FVC) is . Forced expiratory volume in one second (FEV1) is . FEV1/FVC is . FLOW VOLUME LOOP: . LUNG VOLUMES: Total lung capacity (TLC) is . Residual volume (RV) is . DIFFUSING CAPACITY FOR CARBON MONOXIDE: . INTERPRETATION: The pulmonary function tests are . mechanics and lung volumes. Gas exchange (DLCO) is . MTDD
== END 2021-12-22 08:37 | disposition home or self-care (01) ==
LOC: RT 08:39
PROVIDERS: PCP Nurse Practitioner; Visit Provider Chiropractor
DX: J44.9 Chronic obstructive pulmonary disease, unspecified (principal)
CPT/HCPCS: 71046; 94060; J7611

== ENCOUNTER 2022-02-20 09:17 | Outpatient (CLI) | payer OTHER, SELFPAY ==
--- NOTE | 2022-02-20 09:30 | CT_ITS ---
WS: [id number] CT CHEST TECHNIQUE: Contrast enhanced CT of the chest with coronal and sagittal reformatted images. CLINICAL INFORMATION: surveillance COMPARISON: CT chest November 25, 2021 DLP: 660.[address] scans at [facility] use at least one of these dose optimization techniques: automated e xposure control; mA and/or kV adjustment per patient size (includes targeted exams where dose is matc hed to clinical indication); or iterative reconstruction. FINDINGS: Prior postoperative changes RIGHT lower lobectomy. Incidental hepatic hemangiomas unchanged. Diffuse fatty infiltration the liver. Normal portal vein an d splenic vein. Small esophageal hiatal hernia. Adrenal glands are normal. No mediastinal or hilar ly mphadenopathy. No axillary lymphadenopathy. Normal caliber thoracic aorta. Subtle groundglass opacity LEFT lung apex is unchanged. No evidence of recurrent mass or lymphadenop athy. Chronic emphysematous changes. No other suspicious findings. CT/CT chest w con* [id number] IMPRESSION: 1. Prior postoperative changes RIGHT lower lobectomy. No new or progressed les ions. 2. Stable FDG negative groundglass opacity LEFT lung apex. 3. No mediastinal or hilar lymphadenopathy. 4. Stable hepatic hemangiomas.
[2022-02-20] MEDS: iohexol 350 mg/mL 100 mL Btl IV (09:55)
== END 2022-02-20 09:18 | disposition home or self-care (01) ==
LOC: RAD 09:21
PROVIDERS: PCP Nurse Practitioner; Visit Provider Nurse Practitioner Family
DX: C34.90 Malignant neoplasm of unspecified part of unspecified bronchus or lung (principal); Z90.2 Acquired absence of lung [part of]
CPT/HCPCS: 71260

== ENCOUNTER → 2025-02-20 08:23 | Outpatient (BNVA) | payer OTHER, SELFPAY | PROVIDERS: PCP Nurse Practitioner; Visit Provider Student in an Organized Health Care Education/Training Program | DX: Z12.11 Encounter for screening for malignant neoplasm of colon (principal) | CPT/HCPCS: 99203 ==

== ENCOUNTER 2025-03-06 11:29 | Outpatient (RCR) | payer OTHER, SELFPAY | END 2025-03-15 23:59 | disposition home or self-care (01) | LOC: SPT 11:29 | PROVIDERS: PCP Nurse Practitioner; Visit Provider Nurse Practitioner | DX: M25.562 Pain in left knee (principal) | CPT/HCPCS: 97161 ==

== ENCOUNTER → 2025-03-18 13:58 | Outpatient (BNVA) | payer OTHER, SELFPAY | PROVIDERS: PCP Nurse Practitioner; Referring Provider Nurse Practitioner; Visit Provider Internal Medicine | DX: J44.9 Chronic obstructive pulmonary disease, unspecified (principal); R91.1 Solitary pulmonary nodule; Z71.6 Tobacco abuse counseling; F17.210 Nicotine dependence, cigarettes, uncomplicated | CPT/HCPCS: 99204; Q3014 ==

== ENCOUNTER 2025-03-24 06:29 | Day surgery (SDC) | payer OTHER, SELFPAY ==
[2025-03-24 06:48] VITALS: BP 106/72; PULSE 75; RESP 18; TEMP 36.4; O2SAT 98; BMI 23.3
--- NOTE | 2025-03-24 07:02 | ANES.PREANE2 ---
Pre-Anesthetic Assessment Height/Weight: Height 5 ft 6 in Weight 145 lb Temp Pulse Resp BP Pulse Ox O2 Del Method 97.6 F 75 18 106/72 98 Room Air 03/24/25 06:48 03/24/25 06:48 03/24/25 06:48 03/24/25 06:48 03/24/25 06:48 03/24/25 06:48 Preop Diagnosis: Screening colonoscopy Operation Date: 03/24/25 07:30 Proposed Procedures p Colonoscopy 51507 G0121 Z12.11(Not Applicable) - Bud Ayala MD Was Beta Abi taken within 24 hours: N/A Was Clonidine taken within 24 hours: N/A Last intake: Intake Last Liquid Date 03/23/25 Last Liquid Time 23:30 Last Solid Date 03/22/25 Last Solid Time 22:30 Social Tobacco and No alcohol Smokes nicotine and marijuana Exam alert, oriented x 3, clear to auscultation bilaterally and regular rate & rhythm Airway Submandibular: within normal limits Cervical ROM: Other (Limited ROM) Mallampati: Class I Comments: Comments: Edentulous Anesthetic Plan ASA status: 3 Anesthesia: MAC Other: No prior issues with anesthesia Completed bowel prep Current smoker, nicotine and marijuana Prior lobectomy due to concern of lung cancer. Denies any chemo or radiation Hypothyroidism, s/p thyroidectomy. On chronic Synthroid States she has a chronic cough METs greater than 4 Plan for MAC anesthesia Medications/Allergies Home Medications ?Medication ?Instructions ?Recorded ?Confirmed ?Last Taken ?Type cholecalciferol (vitamin D3) 25 25 mcg PO .OCCASIONALLY 12/01/19 03/18/25 03/22/25 History mcg (1,000 unit) capsule lidocaine 5 % topical patch See Rx Instructions .Route .COMPLEX 04/27/21 03/24/25 2 Months Ago History ~01/22/25 albuterol sulfate 90 mcg/actuation 2 inh inhalation Q8H PRN shortness 07/04/21 03/18/25 03/22/25 Rx aerosol inhaler of breath or wheezing #8.5 grams levothyroxine 125 mcg tablet 125 mcg PO QAM 07/04/21 03/18/25 03/23/25 History budesonide 160 mcg-glycopyr 9 2 inh inhalation BID #5.9 grams 03/18/25 03/18/25 Unknown Rx mcg-formot 4.8 mcg/actuation HFA inhaler (Breztri Aerosphere) meloxicam 7.5 mg tablet 15 mg PO DAILY 03/18/25 03/24/25 03/23/25 History tqgpwlum-weny-bqhr 8 mg-folic 400 1 tab PO DAILY 03/18/25 03/18/25 03/22/25 History mcg-K 50 mcg-lutein 300 mcg tablet (Centrum Silver Women) Allergies Allergy/AdvReac Type Severity Reaction Status Date / Time No Known Allergies Allergy Verified 03/18/25 14:09 Current Medications Generic Name Dose Route Start Last Admin Trade Name Freq PRN Reason Stop Dose Admin Sodium Chloride 1,000 mls @ 15 mls/hr 03/24/25 06:34 03/24/25 06:57 Sodium Chloride 0.9% IV 03/25/25 06:33 15 mls/hr .Q24H PRN Administration COLONOSCOPY FLUIDS PFSH Anesthesia Medical History Adenocarcinoma, lung COPD (chronic obstructive pulmonary disease) Surgical History Status post lobectomy of lung Family History Other No pertinent family history Social History Smoking and tobacco/nicotine status: current every day tobacco/nicotine user (1 ppd (now 1/2 ppd) X 39 years. ) cigarettes Packs smoked per day: 1 Years cigarettes smoked: 34 Alcohol intake: former Substance/Drug Use: current Substance/Drug use frequency: daily Lives independently: Yes Household members: significant other Housing: House Marital status: Number of children: 1 Pets and animals: Yes Pets & animals: cat(s) and dog(s)
--- NOTE | 2025-03-24 07:09 | W.PM.OPSUD ---
Surgery/Procedure H&P Update DATE OF PROCEDURE: March 24, 2025 DATE H&P PERFORMED: 02/20/25 H&P UPDATE INFORMATION: I have reviewed H&P completed within last 30 days, I have examined patient prior to procedure, No changes to prior documentation and Risks and benefits of the procedure reviewed CHANGES TO PREVIOUS DOCUMENTATION: Patient has now decided to proceed with colonoscopy. I have explained the risks and benefits of a screening colonoscopy and the patient agrees to proceed. Patient is average for colon cancer. Patient understands that hemoccult is an alternative and still decides to proceed with colonoscopy. Had an extensive discussion with the patient. Answered all questions. Patient understands that the risks include a 1% risk of iatrogenic perforation and risk of aspiration. PREOP DIAGNOSIS: Screening colonoscopy PLANNED PROCEDURE: Operation Date: 03/24/25 07:30 Proposed Procedures p Colonoscopy [id number] G0121 Z12.11(Not Applicable) - Bud Ayala MD
[2025-03-24 08:10] VITALS: BP 108/75; PULSE 68; RESP 18; TEMP 36.2; O2SAT 98
[2025-03-24 08:20] VITALS: BP 117/77; PULSE 67; RESP 18; O2SAT 98
--- NOTE | 2025-03-24 08:45 | ANE.PACU2 ---
Inpatient post-anesthesia follow up: Airway intact: Yes Vital signs: Temperature 97.2 F Pulse Rate 67 Respiratory Rate 18 Blood Pressure 117/77 Pulse Oximetry 98 Oxygen Delivery Me thod Room Air Oxygen Flow Rate Fraction of Inspir ed Oxygen Hydration adequate: Yes Nausea and vomiting: No Pain level: 1 Mental status: Baseline
== END 2025-03-24 08:45 | disposition home or self-care (01) ==
PROVIDERS: PCP Nurse Practitioner; Visit Provider Student in an Organized Health Care Education/Training Program
PROC: 0DJD8ZZ Inspection of Lower Intestinal Tract, Via Natural or Artificial Opening Endoscopic (ICD-10-PCS; CPT 45378; principal; 2025-03-24 07:30)
DX: Z12.11 Encounter for screening for malignant neoplasm of colon (principal); K57.30 Diverticulosis of large intestine without perforation or abscess without bleeding; K52.9 Noninfective gastroenteritis and colitis, unspecified; D12.5 Benign neoplasm of sigmoid colon; D12.2 Benign neoplasm of ascending colon; J44.9 Chronic obstructive pulmonary disease, unspecified; Z85.118 Personal history of other malignant neoplasm of bronchus and lung; F17.210 Nicotine dependence, cigarettes, uncomplicated; E03.9 Hypothyroidism, unspecified
CPT/HCPCS: 45380; 45385; 88305; J2704; J3490; J7030; J9999